=== PATIENT | male | born 1955 | race Caucasian/White ===

== ENCOUNTER 2023-12-17 14:18 | Emergency (ER) | payer OTHER ==
[~2023-12-17] VITALS: Ht 162.6 cm; Wt 72.0 kg
[~2023-12-17 14:18] MED LIST: ACETAMINOPHEN500 MG PO; ASPIRIN REGIMEN81 MG PO; FINASTERIDE5 MG PO; IMODIUM A-D2 M2 PO; LAMICTAL200 MG PO; LEVETIRACETAM750 MG PO; MACROBID 100 M100 MG PO; METOPROLOL SUCC25 MG PO; PHENYTEK300 MG PO; QUETIAPINE FUMA25 MG PO; TAMSULOSIN HCL0.4 MG PO; THIAMINE HCL100 MG PO; VITAMIN D250 MCG PO
[2023-12-17 15:50] VITALS: BP 151/93
== END 2023-12-17 15:58 | disposition home or self-care (01) ==
LOC: ED 14:18
DX: Z46.6 Encounter for fitting and adjustment of urinary device (principal); F03.90 Unspecified dementia, unspecified severity, without behavioral disturbance, psychotic disturbance, mood disturbance, and anxiety; N40.0 Benign prostatic hyperplasia without lower urinary tract symptoms; I10 Essential (primary) hypertension; Z79.82 Long term (current) use of aspirin; Z79.899 Other long term (current) drug therapy
CPT/HCPCS: 51702; 99283

== ENCOUNTER 2024-03-11 07:59 | Emergency (ER) | payer OTHER ==
[~2024-03-11] VITALS: Ht 162.6 cm; Wt 67.5 kg
[2024-03-11 09:38] VITALS: BP 138/86
== END 2024-03-11 09:38 | disposition home or self-care (01) ==
LOC: ED 07:59
DX: S09.90XA Unspecified injury of head, initial encounter (principal); W18.11XA Fall from or off toilet without subsequent striking against object, initial encounter; G40.909 Epilepsy, unspecified, not intractable, without status epilepticus; I10 Essential (primary) hypertension; Z79.899 Other long term (current) drug therapy; Z79.82 Long term (current) use of aspirin
CPT/HCPCS: 70450; 99284-25

== ENCOUNTER 2024-11-15 15:22 | Inpatient (IN) | payer MEDICARE, OTHER ==
[~2024-11-15] VITALS: Ht 162.6 cm; Wt 66.0 kg
[~2024-11-15 15:22] MED LIST changes: +ANTIFUNGAL113 GM TOP; +LOVENOX40 MG/0.4 SUB-Q; +NITROFURANTOIN100 MG PO; +TUMS ULTRA STR470 MG PO; +VITAMIN D350 MC3 PO
[2024-11-15 15:49] LABS: BASOPHILS 0.4 % (0-2); EOSINOPHILS 0.5 % (0-6); HEMATOCRIT 33.3 % (35.0-50.0); HEMOGLOBIN 11.4 g/dL (12.0-18.0); LYMPHOCYTES 7.6 % (24-44); MCH 29.6 (27-36); MCHC 34.1 g/dl (30-36); MCV 86.9 fl (81-99); MONOCYTES 9.2 % (0-12); NEUTROPHILS 82.3 % (39-80); PLATELET COUNT 185 K/uL (140-440); RBC 3.83 M/ul (4.3-5.7)
[2024-11-15 16:05] LABS: ALBUMIN 2.4 g/dL (3.4-5.0); ALBUMIN/GLOBULIN RATIO 0.77 (1.1-2.4); ANION GAP 10.4 (7-21); BILIRUBIN, TOTAL 0.3 mg/dL (0.2-1.0); BUN/CREATININE RATIO 14.56 (6.0-28.6); CALCIUM 7.9 mg/dL (8.5-10.1); CREATININE, SERUM 1.03 mg/dL (0.70-1.30); POTASSIUM 3.4 mmol/L (3.5-5.1); PROTEIN, TOTAL 5.5 g/dL (6.4-8.2)
[2024-11-15 16:09] LABS: LACTIC ACID, BLOOD 2.2 mmol/L (0.4-2.0)
[2024-11-15] MEDS ORDERED: CEFTRIAXONE SODIUM 2 GM in SODIUM CHLORIDE 0.9% 100 ML IV ONE (16:15)
[2024-11-15 16:30] LABS: BILIRUBIN, URINE NEGATIVE (negative); BLOOD/HGB, URINE TRACE-I (Negative); KETONE, URINE SMALL (Negative); LEUK ESTERASE, URINE NEGATIVE (negative); NITRITE, URINE NEGATIVE (negative)
[2024-11-15] MEDS ORDERED: SODIUM CHLORIDE 0.9% 500 ML IV PRN (16:30)
[2024-11-15 16:35] LABS: EPITHELIAL CELLS, URINE SQUAMOUS 1+ /lpf (0-1+)
[2024-11-15 16:36] LABS: BACTERIA, URINE 3+ /hpf (negative); CASTS, URINE GRANULAR 2+ \\lpf; COLLECTION TYPE, URINE CLEAN CATCH; CRYSTALS, URINE NONE SEEN (0-1+); REFLEX CULTURE, URINE Yes (No)
[2024-11-15] MEDS ORDERED: AZITHROMYCIN 500 MG in DEXTROSE 5% 250 ML IV ONE (18:00)
[2024-11-15] MEDS ORDERED: LACTATED RINGER'S 1,000 ML IV SCH (19:45)
[2024-11-15] MEDS ORDERED: PROCHLORPERAZINE EDISYLATE 10 MG/2 ML VIAL IV PRN (19:45)
[2024-11-15] MEDS ORDERED: ondansetron HCL 4 MG/2 ML VIAL IV PRN (19:45)
[2024-11-15] MEDS ORDERED: ACETAMINOPHEN 325 MG TAB PO PRN (19:45)
[2024-11-15] MEDS ORDERED: ENOXAPARIN SODIUM 40 MG/0.4 ML SYR SUB-Q SCH (20:00)
[2024-11-15] MEDS ORDERED: hydrOXYzine pamoate 25 MG CAP PO PRN (20:00)
[2024-11-15] MEDS ORDERED: PHENYTOIN SODIUM 100 MG CAP PO SCH (21:00)
[2024-11-15] MEDS ORDERED: levETIRAcetam 500 MG TAB PO SCH (21:00)
[2024-11-15] MEDS ORDERED: lamoTRIgine 150 MG TAB PO SCH (21:00)
[2024-11-15] MEDS ORDERED: MELATONIN 3 MG TAB PO PRN (21:00)
[2024-11-15 21:26] VITALS: BP 138/64
--- NOTE | 2024-11-15 21:50 | NUR ---
2109 - arrived from ed via stretcher. on 2LNC, not chronic. slight sob noted with exertion, cooperative with turning and repositioning. L side weakness from previous stroke as per pt. 2149- Zeizure pads placed in bed. L eye sclera red with yellow discharge, moderate amount. cleansed, cooperative. redness around nose nad mouth present, scaly dry skin with scattered redness irregular sizes all over the body from ears, neck to lower legs, specially around and back stomach, not open, bruised junior both hands present too, redness around chantal and buttocks area, attends changed, skin care and f/c care done, f/c from facility in place, leg ba in place, draining cloudy yellow urine. Leg bag changed to Large catherer bag. 2 SL RAC and L wrist patent. flushed easily. Not oriented to where he came from, date, time, month, town or specific situation. CLear speech. Oriented to room, used and return demonstration of call light done. asking for coffee, Pt on regular diet.
[2024-11-15 23:29] VITALS: BP 138/64
--- NOTE | 2024-11-15 23:30 | NUR ---
PT AWAKE, WATCHING TC, NO C/O PAIN AT THIS TIME. O2 2LNC ON AT THIS TIME. IVF INFUSING W/O PEOBLEMS, F/C PATENT. REPOSITIONED SELF TO LEFT SIDE, LEFT SIDED GROSS MOVEMENT ARM AND STIFFNESS LEG, NO C/O PAIN. FORGETFUL, REDIRECTABLE, SEIZURE PADS ON RAILS, BED ALRM ON FOR SAFETY
[2024-11-16] VITALS (8 sets, daily range): BP systolic 112–134; BP diastolic 59–74
[2024-11-16] MEDS ORDERED: ALBUTEROL/IPRATROPIUM 3 ML NEB INH PRN (00:45)
--- NOTE | 2024-11-16 01:17 | NUR ---
resting, hob elevated, repositioned in bed. On 2LNC in place,IVF infusing w/o problems, f/c patent, Bed alarm in place
--- NOTE | 2024-11-16 02:11 | NUR ---
awakens easily, denies sob with exertion. O2 titrated from 1.5L NC to 1LNC, sats WNL. lungs dim at bases faint crackles. Repositioned and turned in bed. IVF infusing w/o problems. f/c patent. moves legs in bed. Seizure pads in place. HOB elevated, took sips of water. Went back to sleep
--- NOTE | 2024-11-16 03:25 | NUR ---
RESTING, EYES CLOSED, TURNED SELF. ON 1LNC, F/C PATENT. LEGS ELEVATED,IVF INFUSING W/O PROBLEMS.
[2024-11-16 05:09] LABS: BASOPHILS 0.5 % (0-2); EOSINOPHILS 1.6 % (0-6); HEMATOCRIT 34.1 % (35.0-50.0); HEMOGLOBIN 11.5 g/dL (12.0-18.0); MCH 29.2 (27-36); MCHC 33.7 g/dl (30-36); MCV 86.6 fl (81-99); MONOCYTES 10.8 % (0-12); NEUTROPHILS 75.1 % (39-80); PLATELET COUNT 193 K/uL (140-440); RBC 3.93 M/ul (4.3-5.7); RDW 14.1 (10.5-15.0)
[2024-11-16 05:24] LABS: ALBUMIN 2.5 g/dL (3.4-5.0); ALBUMIN/GLOBULIN RATIO 0.83 (1.1-2.4); ANION GAP 8.4 (7-21); BILIRUBIN, TOTAL 0.4 mg/dL (0.2-1.0); BUN/CREATININE RATIO 13.55 (6.0-28.6); CALCIUM 7.9 mg/dL (8.5-10.1); CREATININE, SERUM 0.59 mg/dL (0.70-1.30); MAGNESIUM 1.7 mg/dL (1.8-2.4); POTASSIUM 3.4 mmol/L (3.5-5.1); PROTEIN, TOTAL 5.5 g/dL (6.4-8.2)
--- NOTE | 2024-11-16 06:07 | NUR ---
NASAL COVIS TEST DONE AND SAMPLE SENT TO LAB, COOPERATIVE WITH SECOND ASSESSMENT AND VITALS, ALL CARES EXPLAINED. F/C PATENT. REPOSITIONED IN BED, EDEMA TO LE NO CHANGES, LE ELEVATED
[2024-11-16 06:42] LABS: INFLUENZA B NAA NEGATIVE (NEGATIVE); RESPIRATORY SYNCYTIAL VIR NAA NEGATIVE (NEGATIVE)
[2024-11-16] MEDS ORDERED: LIDOCAINE 2% VISCOUS 6 ML SYR TOP ONE (06:45)
--- NOTE | 2024-11-16 06:52 | NUR ---
DR DALAL NOTIFIED OF PTS HAVING A F/C WHICH WAS PLACED AT [facility] UNKNOWN DATE AND PT HAS A 3+ BACTERIA PER UA COLLECTED IN ER. NOTIFIED OF PTS LEFT EYE WITH INCREAED RED CONJUCTIVE AND MODERATE AMOUNT OF YELLOW DISCHARGE FROM EYE. NEW ORDERS FOR OK TO CHANGE F/C AND ERYTHROMYCIN MOINTMENT 4X'S A DAY .
--- NOTE | 2024-11-16 07:07 | NUR ---
PATIENTS GARDNER CHANGED PER ORDER. PATIENT TOLERATED ACTIVITY WELL. PATIENT REPOSITIONED IN BED. PATIENT DENIES ANY FURTHER NEEDS. CALL LIGHT IN REACH. BED ALARM ON FOR PATIENT SAFETY.
--- NOTE | 2024-11-16 07:29 | NUR ---
REPORT FROM MARLENA MCMAHAN.
--- NOTE | 2024-11-16 07:55 | NUR ---
MORNING ASSESSMENT IS COMPLETE. PATIENT IS ON 2L OF O2 FOR 94% SATS. RT IN TO DO NEB TX. PATIENT IS RESTING COMFORTABLEY, REPORTS PAIN WITH COUGH OF 7/10 THEN PROMPTLY FORGETS. ABX OINTMENT TO BOTH EYES. NO OTHER NEEDS AT THIS TIME.
[2024-11-16] MEDS ORDERED: ALBUTEROL/IPRATROPIUM 3 ML NEB INH SCH (08:00)
[2024-11-16] MEDS ORDERED: THIAMINE HCL 100 MG TAB PO SCH (08:00)
[2024-11-16] MEDS ORDERED: MAGNESIUM OXIDE 400 MG TABLET PO ONE (08:00)
[2024-11-16] MEDS ORDERED: ERYTHROMYCIN 3.5 GM TUBE OS SCH (08:00)
[2024-11-16] MEDS ORDERED: POTASSIUM BICARBONATE/CIT AC 20 MEQ TABEF PO ONE (08:00)
--- NOTE | 2024-11-16 08:37 | NUR ---
MORNING MEDICATIONS GIVEN. PATIENT ATE 100% OF BREAKFAST.
--- NOTE | 2024-11-16 08:50 | NUR ---
PATIENT IN BED AT THIS TIME. SECONDARY CONNECTOR ARMATURE CHARTED HOURLY ROUNDS. CALL LIGHT WITHIN REACH, NO FURTHER NEEDS AT THIS TIME.
[2024-11-16] MEDS ORDERED: FINASTERIDE 5 MG TAB PO SCH (09:00)
[2024-11-16] MEDS ORDERED: AZITHROMYCIN 250 MG TAB PO SCH (09:00)
[2024-11-16] MEDS ORDERED: METOPROLOL SUCCINATE 25 MG TABCR PO SCH (09:00)
[2024-11-16] MEDS ORDERED: predniSONE 20 MG TAB PO SCH (09:00)
[2024-11-16] MEDS ORDERED: metroNIDAZOLE 250 MG TAB PO SCH (09:00)
[2024-11-16] MEDS ORDERED: LOSARTAN POTASSIUM 25 MG TAB PO SCH (09:00)
--- NOTE | 2024-11-16 09:38 | NUR ---
PATIENT IN MRI VIA BED.
--- NOTE | 2024-11-16 10:29 | NUR ---
PATIENT IN BED AT THIS TIME. INTERNET DEVELOPER CHARTED VITALS AND I&O'S. INTERNET DEVELOPER ALSO PROVIDED PATIENT WITH CATHETER CARE. CALL LIGHT WITHIN REACH, NO FURTHER NEEDS AT THIS TIME.
--- NOTE | 2024-11-16 10:45 | NUR ---
Attempted to speak with Godwin. He is unable to answer most questions. He believes he [place] in [place]. Caleb from [facility] called and states pt may return. Pt uses a cane, he did have HH for PT, but they felt it made his confusion worse as he cont. to attempt to walk and then fall. Pt has a TBI, dementia, and seizures. Per Caleb, pt was having seizures and 02 was low. They deny any needs and pt may return when medically cleared.
--- NOTE | 2024-11-16 10:48 | NUR ---
PATIENT IS AMBULATING IN HALLWAY WITH PHYSICAL THERAPY.
--- NOTE | 2024-11-16 10:57 | NUR ---
PATIENT IS RESTING IN BED, IVF RESUMED. NO OTHER NEEDS.
--- NOTE | 2024-11-16 11:08 | NUR ---
UR CLINICAL REVIEW: 2 MN FOR VERSALUS-PER SOIL BIOLOGY TEACHER MEETS INPT FOR AHRF/PNA WITH NEW NEED FOR OXYGEN MEDICARE INPT 11/15/24 @ 1953 ORDER MATCHES REG NO AUTH REQUIRED PER MEDICARE GUIDELINES DISCHARGE TO HOME IN 2-3 DAYS
[2024-11-16] MEDS ORDERED: PHARMACY RENAL DOSE ADJUSTMENT 1 DOSE MISC PO SCH (12:00)
[2024-11-16] MEDS ORDERED: GUAIFENESIN/DEXTROMETHORPHAN 5 ML SYRUP PO PRN (12:30)
--- NOTE | 2024-11-16 13:12 | NUR ---
PATIENT HOYERED TO COMMODE FROM CHAIR, PATIENT DID NOT HAVE A BM. AFTERNOON MEDICATION GIVEN. PATIENT ASKING FOR WHISKEY AND PERCODAN. PATIENT REORIENTED, MOMENTARILY, AND GIVEN ROBITUSSIN, LAMICTAL AND ABX OINTMENT. NO OTHER NEEDS AT THIS TIME.
--- NOTE | 2024-11-16 14:44 | NUR ---
PATIENT GIVEN PO DILANTIN.
--- NOTE | 2024-11-16 15:24 | NUR ---
PATIENT IN BED AT THIS TIME. TRANSMISSION BUILDER CHARTED HOURLY ROUNDS, THIS TRANSMISSION BUILDER AND TRANSMISSION BUILDERTae MORSE PLACED PATIENT ON BED SPRAGUE. PATIENT STATED HE WAS DONE AND BOTH CNAS REMOVED BED SPRAGUE. CALL LIGHT WITHIN REACH, NO FURTHER NEEDS.
--- NOTE | 2024-11-16 15:58 | NUR ---
IV ROCEPHIN INFUSING FOR 30 MINUTES. PO LAMICTAL GIVEN.
[2024-11-16] MEDS ORDERED: CEFTRIAXONE SODIUM 2 GM in SODIUM CHLORIDE 0.9% 100 ML IV SCH (16:00)
[2024-11-16] MEDS ORDERED: FINASTERIDE5 MG PO (16:11)
[2024-11-16] MEDS ORDERED: HYDROXYZINE HCL25 MG PO (16:11)
[2024-11-16] MEDS ORDERED: LAMOTRIGINE25 MG PO (16:16)
[2024-11-16] MEDS ORDERED: LAMOTRIGINE150 MG PO (16:16)
[2024-11-16] MEDS ORDERED: IBUPROFEN600 MG PO (16:17)
[2024-11-16] MEDS ORDERED: LOSARTAN POTASS25 MG PO (16:18)
[2024-11-16] MEDS ORDERED: LEVETIRACETAM500 MG PO (16:19)
[2024-11-16] MEDS ORDERED: PHENYTOIN SODI100 MG PO (16:19)
[2024-11-16] MEDS ORDERED: QUETIAPINE FUMA50 MG PO (16:20)
[2024-11-16] MEDS ORDERED: OXYBUTYNIN CHLOR5 MG PO (16:21)
[2024-11-16] MEDS ORDERED: AMITRIPTYLINE H50 MG PO (16:23)
--- NOTE | 2024-11-16 17:08 | NUR ---
PATIENT'S SISTER NAJMA CALLED FOR UPDATES AND WILL CALL TOMORROW TO TALK TO PATIENT.
--- NOTE | 2024-11-16 17:58 | EKG ---
[facility] [address] [place], [place] [address] Signed Normal sinus rhythm Normal ECG No previous ECGs available Confirmed by Lisandro Dalal DO ([id number]) on 11/16/2024 5:58:32 PM Electronically Signed By: LISANDRO DALAL DO 11/16/24 1758 PATIENT NAME: ALPHONSE TOWNSEND Electrocardiogram DATE OF : 59 PHYSICIAN: LISANDRO DALAL DO REPORT #: [id number] REPORT IS CONFIDENTIAL AND NOT TO BE RELEASED WITHOUT AUTHORIZATION
--- NOTE | 2024-11-16 18:34 | NUR ---
PATIENT IS SITTING UP IN BED TO EAT DINNER, SEIZURE PAD ON LEFT SIDE OF BED ONLY AT THIS TIME. NO OTHER NEEDS.
--- NOTE | 2024-11-16 18:54 | NUR ---
PATIENT IN BED AT THIS TIME. BROOM MACHINE OPERATOR CHARTED VITALS AND I&O'S. CALL LIGHT WITHIN REACH, NO FURTHER NEEDS.
--- NOTE | 2024-11-16 19:10 | NUR ---
REPORT RECEIVED FROM MARTIR GONZALEZ. PATIENT RESTING IN BED. SEIZURE PADS IN PLACE. CALL LIGHT AND PERSONAL BELONGINGS ARE WITHIN REACH.
--- NOTE | 2024-11-16 20:00 | NUR ---
THIS RN IN ROOM FOR MEDICATION ADMINISTRATION. PATIENT SITTING UP IN BED. PATIENT SWALLOWED MEDICATIONS WITHOUT DIFFICULTY. SEIZURE PRECAUTIONS IN PLACE. CALL LIGHT AND PERSONAL BELONGINGS ARE WITHIN REACH.
--- NOTE | 2024-11-16 21:18 | NUR ---
PATIENT HAD BM. PATIENTS ATTEND CHANGED AND ANNETTE CARE COMPLETED. PATIENT REPOSITIONED IN BED. PATIENTS VITALS TAKEN AND RECORDED. GARDNER EMPTIED AND GARDNER CARE COMPLETED BY SUPERVISOR ELECTRONICS TESTING. INTAKE AND OUTPUT RECORDED. PATIENT DENIES ANY PAIN OR SOB. PATIENT PROVIDED SIPS OF WATER. PATIENT PROVIDED WARM BLANKET. IV INFUSING PER ORDER. EYE OINTMENT APPLIED PER ORDER. PATIENT DENIES ANY FURTHER NEEDS. CALL LIGHT IN REACH. SEIZURE PRECAUTIONS IN PLACE. PATIENTS BED [facility] ON FOR SAFETY.
--- NOTE | 2024-11-16 22:33 | NUR ---
PATIENT RESTING IN BED WATCHING TV. SEIZURE PRECAUTIONS ARE IN PLACE. CALL LIGHT AND PERSONAL BELONGINGS ARE WITHIN REACH.
--- NOTE | 2024-11-16 23:45 | NUR ---
PATIENT RESTING IN BED WATCHING TV. SEIZURE PADS IN PLACE. CALL LIGHT AND PERSONAL BELONGINGS ARE WITHIN REACH.
--- NOTE | 2024-11-17 00:31 | NUR ---
PATIENT SITTING UP IN BED WATCHING TV. SEIZURE PADS IN PLACE. CALL LIGHT AND PERSONAL BELONGINGS ARE WITHIN REACH.
--- NOTE | 2024-11-17 01:05 | NUR ---
PATIENT ATTEMPTING TO CLIMB OUT OF BED, THIS RN IN ROOM AND NOTED PATIENT HAD RIPPED HIS IV HALF WAYS OUT. MICAH ANDREW IN ROOM TO ASSIST THIS RN WITH REPOSITIONING PATIENT AND CHANGING LINEN DUE TO THEM BEING SOILED WITH BLOOD. IV PULLED ALL THE WAY OUT BY THIS RN. IV CATHETER TIP IS INTACT. PRESSURE DRESSING OF GAUZE AND COBAN APPLIED TO OLD IV SITE TO LEFT WRIST. IV IN RIGHT FOREARM FLUSHED WITH 10ML OF NS AND IS PATENT, DRESSING INTACT. NEW BAG OF LR WITH NEW TUBING INFUSING INTO RIGHT FOREARM IV. RIGHT FOREARM IV AND IV TUBING LOOSLY WRAPPED WITH COBAN TO KEEP OUT OF SITE FROM PATIENT TO HELP PREVENT HIM FROM PULLING AT IV. PATIENT MEDICATED WITH MELATONIN AND TYLENOL PER PATIENT REQUEST. PATIENT WITHOUT FURTHER NEEDS AT THIS TIME. CALL LIGHT AND PERSONAL BELONGINGS ARE WITHIN REACH. BED ALARM ACTIVATED, SEIZURE PADS IN PLACE.
--- NOTE | 2024-11-17 02:28 | NUR ---
PATIENT RESTING IN BED WATCHING TV. SEIZURE PADS IN PLACE. CALL LIGHT AND PERSONAL BELONGINGS ARE WITHIN REACH. BED ALARM ACTIVATED.
--- NOTE | 2024-11-17 03:02 | NUR ---
IV ALARMING. THIS RN IN ROOM. IV SITE ASSESSED AND IS WNL. IV FLUIDS RESTARTED. PATIENT WITHOUT FURHTER NEEDS AT THIS TIME. CALL LIGHT AND PERSONAL BELONGINGS ARE WITHIN REACH.
[2024-11-17 03:14] LABS: KEPPRA (LEVETIRACETAM) 44 ug/mL (10-40)
--- NOTE | 2024-11-17 04:17 | NUR ---
PATIENT RESTING IN BED WATCHING TV. SEIZURE PRECAUTIONS IN PLACE. CALL LIGHT AND PERSONAL BELONGINGS ARE WITHIN REACH. BED ALARM ACTIVATED.
--- NOTE | 2024-11-17 05:30 | NUR ---
THIS RN IN ROOM TO CHECK ON PATIENT. PATIENT RESTING IN BED WATCHING TV. PATIENT WAS WARM TO TOUCH, TEMPERATURE TAKEN AND WAS 99.7. THIS RN REMOVED PATIENT'S HEAVY BLANKETS AND WILL CONTINUE TO MONITOR. TOO EARLY FOR PRN TYLENOL AT THIS TIME. PATIENT DENIES ANY PAIN AT THIS TIME. PATIENT WITHOUT FURTHER NEEDS. CALL LIGHT AND PERSONAL BELONGINGS ARE WITHIN REACH.
[2024-11-17 05:48] VITALS: BP 139/78
[2024-11-17 05:49] LABS: BASOPHILS 0.4 % (0-2); EOSINOPHILS 0.9 % (0-6); HEMATOCRIT 32.2 % (35.0-50.0); LYMPHOCYTES 8.9 % (24-44); MCH 29.6 (27-36); MCHC 34.2 g/dl (30-36); MCV 86.5 fl (81-99); MONOCYTES 8.5 % (0-12); NEUTROPHILS 81.3 % (39-80); PLATELET COUNT 223 K/uL (140-440); RBC 3.72 M/ul (4.3-5.7)
[2024-11-17 06:03] LABS: ANION GAP 9.4 (7-21); BUN/CREATININE RATIO 14.51 (6.0-28.6); CALCIUM 7.8 mg/dL (8.5-10.1); CREATININE, SERUM 0.62 mg/dL (0.70-1.30); POTASSIUM 3.4 mmol/L (3.5-5.1)
[2024-11-17 06:36] VITALS: BP 139/78
--- NOTE | 2024-11-17 07:50 | NUR ---
HOURLY ROUNDING. PATIENT APPEARS TO BE IN AND OUT OF SLEEP, PATIENT MENTIONED HAVING BACK PAIN. BACK PAIN IS CHRONIC PER CHARGE NURSE. BOARD HAS BEEN UPDATED AND CALL LIGHT HAS BEEN PLACED WITHIN REACH
[2024-11-17] MEDS ORDERED: POTASSIUM CHLORIDE 10 MEQ TABCR PO ONE (08:15)
[2024-11-17 09:54] VITALS: BP 117/69
--- NOTE | 2024-11-17 10:00 | NUR ---
Called and left a message for Caleb. Updated, pt will be discharged today. I have faxed the orders and dc summary. I just want to confirm a time for transport. I spoke with PT and pts RN, both feel pt might not tolerate a wc ride as he slumps forward.
[2024-11-17] MEDS ORDERED: METRONIDAZOLE250 MG PO (10:05)
[2024-11-17] MEDS ORDERED: VITAMIN B-1100 MG PO (10:06)
[2024-11-17] MEDS ORDERED: CEFDINIR300 MG PO (10:08)
[2024-11-17] MEDS ORDERED: PREDNISONE20 MG PO (10:09)
--- NOTE | 2024-11-17 11:02 | NUR ---
HOURLY ROUNDING. PATIENT IS CURRENTLY SLEEPING. GATHERED HIS THINGS FOR DISCHARGE.
--- NOTE | 2024-11-17 11:15 | NUR ---
Called Caleb, updated pt has dc orders. She received the orders I faxed. They would prefer pt arrive after 1 pm. I will let staff know and call EMS for transport.
--- NOTE | 2024-11-17 12:27 | NUR ---
PT NOT AVAILABLE FOR VISIT. PROVIDED PRAYER.
--- NOTE | 2024-11-17 12:40 | NUR ---
Called and scheduled transport by EMS to [facility]. They will arrive between 1 and 1:30. Orders placed in and envelope and charge nurse notified, of time for transport.
[2024-11-17 13:00] VITALS: BP 115/79
[2024-11-17] MEDS ORDERED: ALBUTEROL/IPRATROPIUM 3 ML NEB INH SCH (14:00)
--- NOTE | 2024-11-17 17:50 | NUR ---
H&P, DC summary, F2F faxed to [facility] for catheter changes. Rx received from Dr. Nunez and faxed to Claudia Singleton, at [facility] to [facility] for pts pink eye.
== END 2024-11-17 13:15 | disposition home or self-care (01) | DRG 177 ==
LOC: ED 15:22 → MS 19:54
PROVIDERS: Emergency Medicine; ADMIT Student in an Organized Health Care Education/Training Program; ATTEND Student in an Organized Health Care Education/Training Program
DX: J69.0 Pneumonitis due to inhalation of food and vomit (principal); J96.01 Acute respiratory failure with hypoxia; F02.83 Dementia in other diseases classified elsewhere, unspecified severity, with mood disturbance; J18.9 Pneumonia, unspecified organism; G30.9 Alzheimer's disease, unspecified; N40.0 Benign prostatic hyperplasia without lower urinary tract symptoms; G40.909 Epilepsy, unspecified, not intractable, without status epilepticus; F10.20 Alcohol dependence, uncomplicated; G89.29 Other chronic pain; D72.829 Elevated white blood cell count, unspecified; F12.10 Cannabis abuse, uncomplicated; I10 Essential (primary) hypertension; Z79.899 Other long term (current) drug therapy; Z79.82 Long term (current) use of aspirin; Z87.820 Personal history of traumatic brain injury
CPT/HCPCS: 36415; 51702; 70553; 71045; 71260; 74176; 80048; 80053; 80177; 80185; 81001; 82140; 83605; 83735; 84439; 84443; 85025; 87088; 87502; 93005; 93010; 94640; 94667; 94668; 97162; 97166; 99285-25; A9270; A9579; J0456; J0696; J1650; J7040; J7060; J7121; J7512; Q9967; U0002

== ENCOUNTER 2025-01-15 13:48 | Emergency (ER) | payer MEDICARE, OTHER ==
[~2025-01-15] VITALS: Ht 162.6 cm; Wt 66.0 kg
[~2025-01-15 13:48] MED LIST changes: +AMITRIPTYLINE H50 MG PO; +CEFDINIR300 MG PO; +HYDROXYZINE HCL25 MG PO; +IBUPROFEN600 MG PO; +LAMOTRIGINE150 MG PO; +LAMOTRIGINE25 MG PO; +LEVETIRACETAM500 MG PO; +LOSARTAN POTASS25 MG PO; +METRONIDAZOLE250 MG PO; +OXYBUTYNIN CHLOR5 MG PO; +PHENYTOIN SODI100 MG PO; +PREDNISONE20 MG PO; +QUETIAPINE FUMA50 MG PO; +VITAMIN B-1100 MG PO
[2025-01-15 15:48] VITALS: BP 145/75
== END 2025-01-15 15:48 | disposition home or self-care (01) ==
LOC: ED 13:48
DX: S42.032A Displaced fracture of lateral end of left clavicle, initial encounter for closed fracture (principal); I10 Essential (primary) hypertension; Z79.2 Long term (current) use of antibiotics; Z79.899 Other long term (current) drug therapy; W19.XXXA Unspecified fall, initial encounter
CPT/HCPCS: 71045; 73000; 73030; 99283-25

== ENCOUNTER 2025-06-17 17:08 | Inpatient (IN) | payer MEDICARE, OTHER ==
--- NOTE | 2025-06-16 22:00 | NUR ---
PATIENT ARRIVED FROM THE ED. PATIENT MOVED VIA SLIDER SHEET TO BED. PATIENT IS ABLE TO MOVE HIS RIGHT ARM AND ASSIST IN ROLLING BUT REQUIRED 2 PERSON ASSIST TO ROLL. SKIN IS GROSSLY INTACT; AREAS OF REDNESS AND DRY SKIN NOTED. ATTEND IN PLACE; CLEAN AND DRY. GARDNER IN PLACE WITH LEG BAG. URINE IS CLOWDY. PATIENT IS ALERT AND TALKATIVE; DIFFICULT TO UNDERSTAND AT TIMES AND ORIENTED MOSTLY TO SELF ONLY. APPEARS TO BE A POOR HISTORIAN AND UNSURE OF MANY THINGS REGAURDING HIS BASLINE AND HISTORY. PATIENT VS STABLE. TOLERATING ROOM AIR. DENIED PAIN OR GI UPSET. IV SITES WNL X2. PATIENT IS COOL TO TOUCH; WARM BLANKETS PROVIDED. EDEMA NOTED IN MAREK LOWER EXTREMITITES; WORSE ON THE LEFT. PATIENT REPORTS HIS LEFT SIDE IS PARALYZED. LEFT ARM IS CONTRACTED; LEFT LEG HAS GROSS MOVEMENT.
[~2025-06-17] VITALS: Ht 162.6 cm; Wt 61.9 kg
[~2025-06-17 17:08] MED LIST changes: -AMITRIPTYLINE H50 MG PO; +AMITRIPTYLINE100 MG PO; +COZAAR50 MG PO; -LOSARTAN POTASS25 MG PO
[2025-06-17] MEDS ORDERED: GENTLE LAXATIVE5 M1 PO (17:39)
[2025-06-17] MEDS ORDERED: JARDIANCE25 MG PO (17:40)
[2025-06-17] MEDS ORDERED: MILK OF MA400 MG/5 M PO (17:43)
[2025-06-17] MEDS ORDERED: SODIUM CHLORIDE 0.9% 1,000 ML IV PRN ×2 (18:15)
[2025-06-17] MEDS ORDERED: SODIUM CHLORIDE 0.9% 500 ML IV PRN (18:15)
[2025-06-17 18:32] LABS: BASOPHILS 0.3 % (0.2-1.2); EOSINOPHILS 0.7 % (0.8-7.0); LYMPHOCYTES 5.3 % (21.8-53.1); MCH 28.9 PG (25.7-32.2); MCHC 31.8 g/dL (32.3-36.5); MCV 90.9 fL (79.0-92.2); MONOCYTES 12.7 % (5.3-12.2); NEUTROPHILS 79.5 % (34.0-67.9); RBC 3.84 M/uL (4.63-6.08)
[2025-06-17 18:50] LABS: ALT (SGPT) 56.0 U/L (14-59); AST (SGOT) 114.0 U/L (15-37); GLOMERULAR FILTRATION RATE,EST 24.0 mL/min (>60); PROTEIN, TOTAL 6.6 g/dL (6.4-8.2); UREA NITROGEN 44.0 mg/dL (7-18)
[2025-06-17 18:53] LABS: LACTIC ACID, BLOOD 1.4 mmol/L (0.4-2.0)
[2025-06-17 20:35] LABS: BLOOD/HGB, URINE MODERATE (Negative); KETONE, URINE NEGATIVE (Negative); LEUK ESTERASE, URINE MODERATE (negative); NITRITE, URINE NEGATIVE (negative)
[2025-06-17 20:40] LABS: EPITHELIAL CELLS, URINE SQUAMOUS 1+ /lpf (0-1+)
[2025-06-17 20:41] LABS: BACTERIA, URINE 2+ /hpf (negative); CASTS, URINE NONE SEEN \\lpf; CRYSTALS, URINE NONE SEEN (0-1+)
[2025-06-17 20:42] LABS: REFLEX CULTURE, URINE Yes (No)
[2025-06-17] MEDS ORDERED: FLUCONAZOLE 150 MG TAB PO ONE (21:00)
[2025-06-17] MEDS ORDERED: levETIRAcetam 500 MG TAB PO SCH (21:21)
[2025-06-17] MEDS ORDERED: lamoTRIgine 25 MG TAB PO SCH (21:30)
[2025-06-17] MEDS ORDERED: ACETAMINOPHEN 325 MG TAB PO PRN (21:30)
[2025-06-17] MEDS ORDERED: QUETIAPINE FUMARATE 25 MG TAB PO SCH (21:30)
[2025-06-17] MEDS ORDERED: Insulin Regular, Human 100 UNIT/ML ML SUB-Q SCH (21:30)
[2025-06-17] MEDS ORDERED: SODIUM CHLORIDE 0.9% 1,000 ML IV SCH (21:30)
[2025-06-17] MEDS ORDERED: HYDROmorphone HCL 1 MG/ML SYR IV PRN (21:30)
[2025-06-17] MEDS ORDERED: lamoTRIgine 100 MG TAB PO SCH (21:30)
[2025-06-17] MEDS ORDERED: PHENYTOIN SODIUM 100 MG CAP PO SCH (21:30)
[2025-06-17 22:00] VITALS: BP 107/77
--- NOTE | 2025-06-17 22:30 | NUR ---
PATIENT PROVIDED SCHEDULED MEDS. VERIFIED HOME MED REC FROM PAPERWORK SENT BY FACILITY. PATIENT TAKES PO MEDS WITHOUT CONCERN. IV FLUIDS INFUSING PER ORDER; SITE WNL. PATIENT DENIED OTHER NEEDS. CALL LIGHT IN PATIENT HAND.
[2025-06-17 23:00] VITALS: BP 100/71
[2025-06-18] VITALS (22 sets, daily range): BP systolic 89–136; BP diastolic 52–80
--- NOTE | 2025-06-18 | NUR ---
PATIENT APPEARS RESTFYL; EYES CLOSED. VS STABLE.
--- NOTE | 2025-06-18 01:10 | NUR ---
pt srivastava leg bag changed to a regualt srivastava bag. srivastava draining and pt tolerated well. call light in reach.
--- NOTE | 2025-06-18 02:00 | NUR ---
PATIENT RESTING IN BED, EYES CLOSED. VS STABLE. PATIENT WAKES EASILY TO VOICE. DENIED ANY CONCERNS. CALL LIGHT IN REACH.
--- NOTE | 2025-06-18 05:15 | NUR ---
PATIENT PROVIDED PRN TYELNOL FOR GENERALIZED PAIN. PATIENT IS ORIENTED TO SELF AND HOLDS CONVERSATION WELL, BUT IS UNSURE OF DATE AND SITUATION. VS STABLE. IV FLUIDS PER ORDER. SITE WNL. URINE OUTPUT QS. URINE IS MORE CLEAR THAN PREVIOUSLY NOTED. PATIENT INCONTINENT OF STOOL. ATTENDS CHANGED. ALYVEN PLACED ON COCCYX. BARRIER CREAM APPLIED. PATIENT REPOSITIONED IN BED. HOB ELEVATED. HEALS FLOATED. CALL LIGHT IN REACH.
[2025-06-18 05:43] LABS: BASOPHILS 0.3 % (0.2-1.2); EOSINOPHILS 1.0 % (0.8-7.0); LYMPHOCYTES 4.4 % (21.8-53.1); MCH 29.3 PG (25.7-32.2); MCHC 32.8 g/dL (32.3-36.5); MCV 89.3 fL (79.0-92.2); MONOCYTES 9.8 % (5.3-12.2); NEUTROPHILS 83.7 % (34.0-67.9); RBC 3.38 M/uL (4.63-6.08)
[2025-06-18 06:01] LABS: ALT (SGPT) 40.0 U/L (14-59); AST (SGOT) 61.0 U/L (15-37); GLOMERULAR FILTRATION RATE,EST 29.0 mL/min (>60); PROTEIN, TOTAL 5.3 g/dL (6.4-8.2); UREA NITROGEN 42.0 mg/dL (7-18)
--- NOTE | 2025-06-18 06:37 | NUR ---
CALLED FACILITY TO REQUEST POLST FORM FAXED TO [facility] FOR RECORDS. STAFF AT FACILITY ADVISED THAT THE PATIENT DOES NOT WEAR DENTURES AND IS CHRONICALLY WC BOUND REQUIRING MAX 2 PERSON ASSIST.
[2025-06-18] MEDS ORDERED: POTASSIUM CHLORIDE 40 MEQ,LIDOCAINE HCL 1% 40 MG in DEXTROSE 5% 250 ML IV ONE (07:00)
[2025-06-18] MEDS ORDERED: ACETAMINOPHEN 325 MG TAB PO PRN (07:15)
--- NOTE | 2025-06-18 08:00 | NUR ---
PTS SISTER UPDATED VIA TELEPHONE ON PT STATUS AND PLAN OF CARE. ALL QUESTIONS ANSWERED.
--- NOTE | 2025-06-18 08:18 | NUR ---
UR CLINICAL REVIEW: 2MN VERSALUS, MEETS INPT FOR PYELONEPHRITIS, ACUTE RENAL FAILURE HYPOTENSIVE (89/64), CT SHOWS POSSIBLE PYELONEPHRITIS BILAT, CREATININE 2.76 WITH BASELINE 0.83, GFR 24, IV ANTIBIOTICS, IV FLUIDS, TREND LABS MEDICARE INPT 06/18/2025 @ 0707 ORDER MATCHES REG NO AUTH REQUIRED PER MEDICARE RULES DC TO ASSISTED LIVING WHEN MEDICALLY READY.
[2025-06-18] MEDS ORDERED: FLUCONAZOLE 150 MG TAB PO ONE (09:00)
[2025-06-18] MEDS ORDERED: EMPAGLIFLOZIN 25 MG TAB PO SCH (09:00)
--- NOTE | 2025-06-18 09:30 | NUR ---
PT WAKES EASILY UPON ENTERING ROOM. PT ORIENTED TO SELF ONLY, PLESANT IN CONVERSATION BUT DISORIENTED TO TIME AND PLACE. 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 LEFT ARM AND LEG MINIMAL MOVEMENT ON COMMAND, BASELINE. 2+ EDEMA IN LEFT UPPER AND LOWER EXTREMITY, ARM ELEVATED ON PILLOW, HEELS ELEVATED ON PILLOW. GARDNER DRAINING YELLOW URINE WITH CLOUDY SEDIMENT IN TUBE. URINE OUTPUT ADEQUATE. BP MARGINAL, MAP >65, MONITORING CLOSELY. PT ABLE TO FEED SELF MINIMALLY, ASSISTED. POOR APPETITE, DRINKING LOTS OF WATER. PT RATES PAIN 0/10. IV SITES WNL.
--- NOTE | 2025-06-18 11:15 | NUR ---
INTO SEE PATIENT. PATIENT LIVES AT [facility]. PATIENT USES WHEELCHAIR AT BASELINE. NO OXYGEN OR CPAP. PATIENT POLST FROM ACCOUNT PRINTED. PLACED ON CHART.
[2025-06-18] MEDS ORDERED: PHARMACY RENAL DOSE ADJUSTMENT 1 DOSE MISC PO SCH (12:00)
[2025-06-18] MEDS ORDERED: FLUCONAZOLE 200 MG TAB ONE (12:24)
[2025-06-18] MEDS ORDERED: HEParin SOD (PORCINE) 5,000 UNIT/ML SDV SUB-Q SCH (12:41)
[2025-06-18] MEDS ORDERED: LACTATED RINGER'S 1,000 ML IV SCH (12:45)
--- NOTE | 2025-06-18 13:30 | NUR ---
PT MICHAEL UP TO CHAIR AFTER FULL BED BATH. NO AREAS OF SKIN BREAKDOWN NOTED ON FULL BED BATH. ALLYVN ON COCCYX FOR PREVENTION. PT REMAINS ONLY ORIENTED TO SELF, PLEASANT. DENIES WANTING LUNCH, CHOCOLATE ENSURE PROVIDED, PT EAGER TO DRINK RATHER THAN EAT. VS STABLE. AFEBRILE.
--- NOTE | 2025-06-18 14:33 | NUR ---
NURSE AND I MICHAEL PATIENT TO HIS CHAIR. BED BATH COMPLETE NEW GOWN. BED LINENS CHANGED WAFFLE MATTRESS ON BED.
[2025-06-18] MEDS ORDERED: QUETIAPINE FUMARATE 25 MG TAB PO SCH (15:00)
[2025-06-18] MEDS ORDERED: DEXTROSE 5% 1,000 ML IV PRN (15:15)
[2025-06-18] MEDS ORDERED: DEXTROSE 50% 50 ML SYR IV PRN ×2 (15:15)
[2025-06-18] MEDS ORDERED: GLUCAGON,HUMAN RECOMBINANT 1 MG/ML VIAL SUB-Q PRN (15:15)
[2025-06-18] MEDS ORDERED: IBLOOD GLUCOSE TEST STRIP 1 EA TEST XX PRN (15:15)
--- NOTE | 2025-06-18 15:30 | NUR ---
PT BACK TO BED USING MICHAEL. PT INC OF VERY LARGE LIQUID BM. NEW COCCYX ALLEYVN PLACED. GARDNER CARE COMPLETE. PT POSITIONED TO LEFT SIDE USING PILLOWS. CALL LIGHT BUTTON IN HAND.
--- NOTE | 2025-06-18 16:17 | NUR ---
PT ASSESSMENT AND I/O REVIEWED WITH MD - INCREASE IVF 150ML/HR.
[2025-06-18] MEDS ORDERED: IBLOOD GLUCOSE TEST STRIP 1 EA TEST XX SCH ×2 (17:00→20:00)
[2025-06-18] MEDS ORDERED: INSULIN LISPRO 100 UNIT/ML ML SUB-Q SCH (17:00)
[2025-06-18] MEDS ORDERED: PEPTO-BISM262 MG/15 PO (17:36)
[2025-06-18] MEDS ORDERED: REGULOID PO (17:37)
[2025-06-18] MEDS ORDERED: STIMULANT LAXA1 EACH PO (17:38)
[2025-06-18] MEDS ORDERED: BACTRIM DS TAB1 EACH PO (17:38)
[2025-06-18] MEDS ORDERED: VITAMIN D325 MCG PO (17:39)
[2025-06-18] MEDS ORDERED: VISINE TIRED EY15 ML OU (17:39)
--- NOTE | 2025-06-18 17:40 | NUR ---
MED REC COMPLETE
--- NOTE | 2025-06-18 18:13 | NUR ---
PT DROWSY, REQUIRES WAKING WITH VOICE AND TOUCH STIMULATION. PT DENIES WANTING TO EAT DINNER. DOES DRINK WATER AND SODA WELL WHEN OFFERED. PT REPOSISTIONED TO RIGHT SIDE AND HEELS FLOATED WITH PILLOWS. VS STABLE, BP REMAINS SOFT WITH MAPS >65. AFEBRILE. URINE OUTPUT QS.
--- NOTE | 2025-06-18 19:50 | NUR ---
HANDOFF REPORT RECEIVED FROM DAY SHIFT RN. PATIENT RESTING IN BED WITH EYES CLOSED, RR 17. NO SIGNS OF ACUTE DISTRESS NOTED. PATIENT HAS CALL LIGHT IN REACH.
--- NOTE | 2025-06-18 20:45 | NUR ---
PATIENT ASSESSMENT COMPLETE. PATIENT AWAKE, ORIENTED TO SELF ONLY. PATIENT LEFT WRIST IV D/C. PATIENT RIGHT AC IV SITE WNL, IVF INFUSING PER EMAR. PATIENT GARDNER CATH INTACT, GARDNER CARE COMPLETE. BRIEF CLEAN AND DRY. PATIENT REMAINS ON ROOM AIR, TOLERATING WELL. VITAL SIGNS STABLE. PATIENT NOTED TO BE TACHYCARDIC, HEART RATE 100-115. PATIENT DENIES FEELING ANY PAIN, SOB, OR NAUSEA AT THIS TIME. PATIENT HAS CALL LIGHT IN REACH.
[2025-06-18] MEDS ORDERED: levETIRAcetam 500 MG TAB PO SCH (21:00)
[2025-06-18] MEDS ORDERED: AMITRIPTYLINE HCL 100 MG TAB PO SCH (21:00)
[2025-06-18] MEDS ORDERED: MELATONIN 3 MG TAB PO PRN (21:00)
--- NOTE | 2025-06-18 22:05 | NUR ---
PATIENT CBG READING 74. PATIENT GIVEN PUDDING AND APPLE JUICE - TOLERATES WELL. THIS RN REMAINS IN ROOM.
--- NOTE | 2025-06-18 23:04 | NUR ---
PATIENT REPOSITIONED IN BED. IVF INFUSING PER EMAR, SITE WNL. PATIENT DENIES ANY FURTHER NEEDS AT THIS TIME. LIGHTS DIMMED. CALL LIGHT IN REACH.
[2025-06-19] VITALS (12 sets, daily range): BP systolic 108–141; BP diastolic 56–81
--- NOTE | 2025-06-19 01:00 | NUR ---
PATIENT RESTING WITH EYES CLOSED, RESPIRATIONS EVEN AND UNLABORED. NO SIGNS OF ACUTE DISTRESS NOTED. PATIENT VITAL SIGNS STABLE. CALL LIGHT IN REACH.
--- NOTE | 2025-06-19 02:20 | NUR ---
PATIENT CBG 116. PATIENT BRIEFLY WAKES UP THEN DRIFTS BACK TO SLEEP. PATIENT GARDNER INTACT. BRIEF CLEAN AND DRY. VITAL SIGNS STABLE. NO NEEDS AT THIS TIME. CALL LIGHT IN REACH.
--- NOTE | 2025-06-19 04:32 | NUR ---
patient moved to med-surg room 109. handoff report given to Gloria MCMAHAN. all questions answered. patient belongings taken with patient.
--- NOTE | 2025-06-19 04:37 | NUR ---
Pt admitted at 0415 from CCU to room 109. alert to self, garbled speech, on room air, lungs clesar uppers and dim at bases, does not know how to take deep breaths when asked. abd soft, LBM yesterday. chronic f/c in place, attends in place. 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 IVF infusing RFA
--- NOTE | 2025-06-19 05:57 | NUR ---
RESTING, EYES CLOSED, ON ROOM AIR, NO S/S DISTRES, IVF INFUSING, F/C PATENT ALARMS IN PLACE, TELE#6, SR
[2025-06-19 07:55] LABS: BASOPHILS 0.3 % (0.2-1.2); EOSINOPHILS 1.6 % (0.8-7.0); LYMPHOCYTES 7.5 % (21.8-53.1); MCH 29.2 PG (25.7-32.2); MCHC 31.4 g/dL (32.3-36.5); MCV 93.0 fL (79.0-92.2); MONOCYTES 10.5 % (5.3-12.2); NEUTROPHILS 79.1 % (34.0-67.9); RBC 3.73 M/uL (4.63-6.08)
[2025-06-19 08:10] LABS: ALT (SGPT) 39.0 U/L (14-59); AST (SGOT) 43.0 U/L (15-37); GLOMERULAR FILTRATION RATE,EST 34.0 mL/min (>60); PHOSPHORUS, INORGANIC 2.4 mg/dL (2.5-4.9); PROTEIN, TOTAL 5.7 g/dL (6.4-8.2); UREA NITROGEN 32.0 mg/dL (7-18)
--- NOTE | 2025-06-19 08:23 | NUR ---
Verbal order obtained from Dr. Miller to stop IV fluids on this patient and he advised that this pt is a "feeder" and needs help being fed his meals. Primary RN notified.
[2025-06-19] MEDS ORDERED: FINASTERIDE 5 MG TAB PO SCH (09:00)
--- NOTE | 2025-06-19 09:27 | NUR ---
ASSISTED PATIENT WITH EATING BREAKFAST. PATIENT IS DRINKING WELL AND HAD ONE COFFEE AND TWO ANAYA. ONLY WANTED TO EAT HIS EGGS AND UNINTERESTED IN ALL OTHER BREAKFAST FOODS.
--- NOTE | 2025-06-19 10:29 | NUR ---
POST BREAKFAST PATIENT STATED HE NEEDED TO MAKE A BOWEL MOVEMENT. AT THIS TIME I HAD CLEANED UP BREAKFAST AND MARTIR ALATORRE WALKED INTO THE ROOM. SHE ASSISTED ME IN ROLLING PATIENT TO CHECK FOR BOWEL MOVEMENT. UPON LIFTING COVERS WE SEEN THAT PATIENT HAD LIQUID STOOL LEAKING OUT OF HIS BRIEF. TOGETHER WE ROLLED PATIENT AND GOT HIM CLEANED UP AND FRESH LINENS PLACED. MICAH JONES WAS CALLED IN TO ASSIST WITH HOLDING THE PATIENT. MARTIR STUART WAS ALSO CALLED IN TO CHECK ON SOME SEDIMENT IN THE GARDNER CATHETER TUBING. ONCE PATIENT WAS CLEAN, WITH A FRESH BRIEF AND FRESH LINENS I LAYED HIM BACK INTO A COMFORTABLE POSITION WITH PILLOWS SUPPORTING HIM AND WARM BLANKETS. HE HAD NO FURTHER NEEDS AND MARTIR ALATORRE NO LONGER NEEDED MY ASSISTANCE WITH HER TASKS.
--- NOTE | 2025-06-19 10:33 | NUR ---
In with pt for IV pump alarming, "infusion complete". Pt is resting quietly with eyes closed, breathing is regular, even, and non-labored. Pt begins to mumble quietly when assessing the IV site but no c/o pain, IV flushes well, capped and S/L. Pt continues to rest quietly. Call light in reach. Primary RN notified.
--- NOTE | 2025-06-19 14:32 | NUR ---
Patient awake, alert to self and place, no acute distress. Patient repositioned for comfort. Patient denies pain at this time. Sharp cath intact/ patent, notable yellow urine with sediment. Bed alarm intact, pt denies needs at this time.
--- NOTE | 2025-06-19 15:00 | NUR ---
PATIENT IS LAYING IN BED. PATIENTS BRIEF WAS CHECKED AND WAS DRY. CALL LIGHT IS WITHIN REACH AND NO FURTHER NEEDS AT THIS TIME.
--- NOTE | 2025-06-19 17:40 | NUR ---
PT REC'D FOR CARE. REPORT REC'D FROM MARTIR ALATORRE. PT BEING FED MINCED AND MOIST DIET BY CUTTER GRINDER OPERATOR. PT ALERT, ORIENTED TO SELF, RE-ORIENTED TO PLACE AND TIME. PT SITTING UP IN BED, WITH WAFFLE MATRESS IN USE. PT DENIES C/O AT THIS TIME. VSS. PT WITH 2 INCONTINENT STOOLS TODAY, CONTRACTIONS NOTED TO HANDS BILAT, BS+ F/C DRAINING YELLOW URINE WITH SCANT SEDIMENT, TRACE EDEMA TO BLE. ALLEVIN TO COCCYX. IV TO R AC PATENT AND FLUSHED. CALL SALGUERO IN REACH, BED IN LOW POSITION AND LOCKED. SIDERAILS UP X4, BED ALARM ACTIVATED.
--- NOTE | 2025-06-19 18:36 | NUR ---
PT RESTING T/O TIME OF CARE, NO C/O VERBALIZED. CALL SALGUERO IN REACH, WAFFLE MATRESS IN PLACE, SIDERAILS UP X4, BED LOW POSITION AND LOCKED, BED ALARM IN USE. CPOX IN USE AT BEDSIDE, RA SPO2 96%
--- NOTE | 2025-06-19 19:28 | NUR ---
pt iin bed, hob elevated, garbled speech, on room air, cppox at bedside, f/c in place.
--- NOTE | 2025-06-19 20:19 | NUR ---
PT AWAKE, GARBLED SPEECH, COOPERATIVE, CONTRACTURE OF HANDS AND PARALYZED L SIDED FROM PREVIOUS STROKE, LEGS ELEVATED, ONR OOM AIR, CPOX AT BEDSIDE, F/C PATENT. DRAINING CLEAR YELLOW URINE. CARE DONE. TURNED AND REPOSITIONED, MEDS GIVEN WITH PUDIN. TOLERATED WELL, ASPIRATION,SEIZURE AND FALL PRECAUTIONS IN PLACE, ALARMS.
[2025-06-19] MEDS ORDERED: PHENYTOIN SODIUM 100 MG CAP PO SCH (21:00)
[2025-06-20] VITALS (8 sets, daily range): BP systolic 145–458; BP diastolic 66–79
--- NOTE | 2025-06-20 02:25 | NUR ---
RESTING, EYES CLOSED, AWAKENS EASILY, REPOSITIONED. ON ROOM AIR, CPOX AT BEDSIDE, F/C PATENT
--- NOTE | 2025-06-20 05:08 | NUR ---
Awakens easily, On room air. no s/sx distress. Repositioned and turned in bed. contractures of hands, weakness/gross movement of L sided. f/c patent. Draining clear yellow urine. LE elevated with pillows. Cooperative with vitals and assessments
--- NOTE | 2025-06-20 05:10 | NUR ---
Repositioned Pt and adjusted pillows with RN. No other needs expressed by Pt. Call light left in reach.
[2025-06-20 05:32] LABS: BASOPHILS 0.4 % (0.2-1.2); EOSINOPHILS 1.4 % (0.8-7.0); LYMPHOCYTES 13.2 % (21.8-53.1); MCH 29.0 PG (25.7-32.2); MCHC 31.5 g/dL (32.3-36.5); MCV 91.9 fL (79.0-92.2); MONOCYTES 13.0 % (5.3-12.2); NEUTROPHILS 70.7 % (34.0-67.9); RBC 3.35 M/uL (4.63-6.08)
[2025-06-20 05:51] LABS: ALT (SGPT) 32.0 U/L (14-59); AST (SGOT) 32.0 U/L (15-37); GLOMERULAR FILTRATION RATE,EST 44.0 mL/min (>60); PHOSPHORUS, INORGANIC 2.6 mg/dL (2.5-4.9); PROTEIN, TOTAL 5.2 g/dL (6.4-8.2); UREA NITROGEN 25.0 mg/dL (7-18)
--- NOTE | 2025-06-20 06:20 | NUR ---
dR Lassiter NOTIFIED OF PTS TAYLOR na OF 155 AND k 2.8. nEW TELEPHONE ORDERS TO GIVE 40 mEq potassium po now.
[2025-06-20] MEDS ORDERED: POTASSIUM CHLORIDE 10 MEQ TABCR PO ONE (06:30)
--- NOTE | 2025-06-20 07:07 | NUR ---
Pt was incontinent of large amount of semiliquid brown colores, strong smelling bm, skin care and f/c care done. red areas noted in chantal creases, Allevynto buttocks/coccyx area removed. clean attends in [facility], all cares explained. Pt took 40 mEq tabs
--- NOTE | 2025-06-20 07:15 | NUR ---
Pt report received from RN Gloria. Pt is resting in bed, with HOB elevated. Staff had just finished cleaning the pt after a large, odiferous, liquid bowel movement. Some smears of stool were collected in the event that the hospitalist wants to order a c.diff. Pt call light in reach.
[2025-06-20] MEDS ORDERED: POTASSIUM CHLORIDE 10 MEQ TABCR PO SCH (09:00)
--- NOTE | 2025-06-20 09:00 | NUR ---
HOURLY ROUNDING PATIENT LAYING IN BED, NO REQUEST FROM PATIENT AT THIS TIME
--- NOTE | 2025-06-20 09:26 | NUR ---
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 HE LIKES CHOCOLATE ENSURES. TWO OF THEM WAS GIVEN. ITS HARD FOR PATIENT TO EAT WITH NO TEETH HE REPORTS. NO FURTHER REQUEST FROM PATIENT AT THIS TIME
--- NOTE | 2025-06-20 10:08 | NUR ---
pt AWAKE RESTING IN BED. REPOSITIONED HIGHER IN BED 2PA TO BOOST. PO MEDICATIONS ADMINISTERED WITH BITES OF PUDDING WNL. IV SITE FLUSHED WNL, IV ANTIBIOTIC INFUSING ORDERED. pt PLACED ON BED SPRAGUE PER REQUEST. CALL LIGHT IN LAP. pt VERBALIZES UNDERSTANDING OF HOW TO CALL.
--- NOTE | 2025-06-20 11:34 | NUR ---
PC to Dr. Miller to inquire whether or not he would like the 0900 dose of potassium to be administered to this pt after he received 40meq at 0700 hours. He advised to hold the 0900 dose and give the 2100 dose.
[2025-06-20] MEDS ORDERED: LIDOCAINE 2% VISCOUS 6 ML SYR TOP ONE (11:45)
--- NOTE | 2025-06-20 12:22 | NUR ---
IN ROOM TO CHANGE GARDNER CATHETER. pt INCONTINENT OF LARGE SOFT/LIQUID STOOL. ATTENDS, TJ, LINEMONALISA, GOWN CHANGED. GARDNER DC'D. NEW GARDNER PLACED WNL, STERILE TECHNIQUE MAINTAINED. pt EDUCATION PROVIDED. pt REPOSITIONED IN BED, HOB ELEVATED. PILLOW UNDER LEGS. AWAKE WATCHING TV. CALL LIGHT IN REACH. BED ALARM ON.
--- NOTE | 2025-06-20 12:45 | NUR ---
In with pt for hourly rounding and to assist him with eating his lunch. Pt is awake, watching tv. HOB elevated to facilitate consuming his lunch. Pt offered water, of which he drank a total of 750ml before I eventually left it with him to hold at his request. Pt ate his pears off his lunch tray and two bites of chicken and mashed potatoes; however, after chewing the second bite for several minutes, he spit it into an emesis bag. He has, according to Britney, drank [address] ensures [address] far[address] iMller requested earlier this morning that we encourage PO fluids. Side rails up x4, call light in reach.
--- NOTE | 2025-06-20 13:15 | NUR ---
HOURLY ROUNDING NURSE AT BEDSIDE, NO REQUEST AT THIS TIME
[2025-06-20] MEDS ORDERED: LACTOBACILLUS RHAMNOSUS GG 1 EACH CAP PO SCH (13:24)
--- NOTE | 2025-06-20 14:24 | NUR ---
IN ROOM FOR MEDICATION ADMINISTRATION. pt AWAKE, SITS UP. SWALLOWS MEDICATION WNL WITH PUDDING. WATER REFILLED AND DRINKS PROVIDED. CALL LIGHT IN REACH.
--- NOTE | 2025-06-20 15:32 | NUR ---
In with pt for med administration. Pt is supine in bed with HOB elevated, tv on, pt's eyes are closed, breathing is regular, even, and non-labored. Pt awakens easily to quiet noise. Administered scheduled meds with chocolate pudding. Pt ate 3/4 of the rest of his pudding, then drank 400ml of water. Pt able to hold his cup and drink from the straw. Pt finished drinking water and is now watching TV. Denies further needs. Call light in reach.
--- NOTE | 2025-06-20 17:50 | NUR ---
HOURLY ROUNDING PATIENT SITTING UP IN BED, NURSE AT BEDSIDE. VITAL HAVEB BEEN COMPLETED AND CALL LIGHT HAS BEEN PLACED WITHIN REACH
--- NOTE | 2025-06-20 18:09 | NUR ---
PATIENT DINNER SITTING ON SINK HARDLY ATE. CURTAIN MENDER WAS GOING TO GO IN LATER TO TRY AGAIN. THIS NURSE ASKED PATIENT IF HE WOULD LIKE MORE AND HE SAID YES. PATIENT FED BY THIS NURSE, ATE ABOUT 15 MORE BITES.
--- NOTE | 2025-06-20 18:40 | NUR ---
INTO PATIENTS ROOM TO CLEAN ROOM.
--- NOTE | 2025-06-20 20:24 | NUR ---
pt on room air, garbled but understandable speech, on room air, pleasnt and cooperative, lungs cleasr bilat, abd soft, deejay, LBM today, slight redness inguinal area, f/c patent, p[ericare done. 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 L arm elevated. Meds taken with pudin, aspiration precautions in place, tolerated well,
[2025-06-20] MEDS ORDERED: levETIRAcetam 500 MG TAB PO SCH (21:00)
[2025-06-21] VITALS (9 sets, daily range): BP systolic 135–152; BP diastolic 72–79
--- NOTE | 2025-06-21 00:36 | NUR ---
Resting, eyes closed, no s/sx distress, f/c patent, Repositioned in bed,
[2025-06-21 05:32] LABS: BASOPHILS 0.4 % (0.2-1.2); EOSINOPHILS 2.7 % (0.8-7.0); LYMPHOCYTES 21.1 % (21.8-53.1); MCH 29.0 PG (25.7-32.2); MCHC 31.6 g/dL (32.3-36.5); MCV 92.0 fL (79.0-92.2); MONOCYTES 9.7 % (5.3-12.2); NEUTROPHILS 64.1 % (34.0-67.9); RBC 3.48 M/uL (4.63-6.08)
[2025-06-21 05:50] LABS: GLOMERULAR FILTRATION RATE,EST 65.0 mL/min (>60); UREA NITROGEN 23.0 mg/dL (7-18)
--- NOTE | 2025-06-21 06:57 | NUR ---
Pt report received from MARTIR Castro. Pt is resting in bed leaning towards his right side. His eyes are closed but he opens them as I move to that side of the bed. Breathing is regular, even, and non-labored. Call light in reach. Pt denies needs at this time. White board updated.
[2025-06-21] MEDS ORDERED: 1/2 NS IV SCH (08:00)
[2025-06-21] MEDS ORDERED: KCL IV SCH (08:00)
--- NOTE | 2025-06-21 08:13 | NUR ---
HOURLY ROUNDING PATIENT LAYING IN BED. PATIENT IS A FEEDER, FED BREAKFEAST ATE 40% OF THE MEAL. PATIENT INCOT OF STOOL, LIQUID RUNNY STOOL. BED BATH WAS GIVEN AND LINENS HAVE BEEN CHANGED. AM CARE COMPLETED. CALL LIGHT HAS BEEN PLACED WITHIN REACH
--- NOTE | 2025-06-21 09:30 | NUR ---
In with pt for medication administration. Aide Britney in as well, to assist placing pt on the bedpan as he states he needs to have a BM. Pt did not have a BM. Floated pt to right side. Reassessed IV site and noted it to be leaking. IV D/C'd at this time. Attempted one IV insertion on left arm, unsuccessful. chair inspector and leveler notified, and she will attempt to start a new IV. Pt took his A.M. oral meds with pudding and tolerated well. After chantal care, pt bed was placed in a position of comfort and he closed his eyes and fell asleep. Call light in reach, TV on.
--- NOTE | 2025-06-21 10:42 | NUR ---
SPOKE WITH JESUS AT [facility] THIS AM. UPDATES FAXED TO THE FACILITY. PATIENT WILL RETURN TO [facility] WHEN MEDICALLY READY IN 2-3 DAYS. NO CM NEEDS AT THIS TIME.
--- NOTE | 2025-06-21 11:02 | NUR ---
Spoke with Dr. Miller and asked if he would prefer to have this pt's diet changed to 2G sodium diet r/t his elevated serum sodium levels. Verbal order obtained to change diet to 2G sodium diet from regular diet.
--- NOTE | 2025-06-21 13:33 | NUR ---
RECEIVED CALL FROM RONNA AT [facility]. HE RECEIVES [facility]TER [facility] AND WILL NEED RESUMPTION ORDERS AT TIME OF DISCHARGE.
--- NOTE | 2025-06-21 13:44 | NUR ---
Pt lunch tray is still in room. Pt is resting supine with eyes closed, breathing is regular, even, and non-labored. Pt awakens easily to voice. When asked if he'd like to eat lunch, pt states he is thirsty, not hungry. Pt drank 350ml of watered down cranberry juice, then started drinking his iced water as well. Pt has been very thirsty. His output from 10am to 2pm was 800ml clear yellow urine. Will reassess his desire to eat. VS obtained. Side rails up x4, call light in reach, IVF running at ordered rate.
--- NOTE | 2025-06-21 14:26 | NUR ---
PC to Dr. Miller to update him on the intake and output for this patient since 0700 hours this shift. Pt has had a minimum oral intake of 1900ml (much of which was witnessed being drank by this RN), and IV intake thus far of 272. Urine out put since 0700 this shift is 2600ml. Verbal order obtained from Dr. Miller to redraw a BMP at 1700 hours today.
--- NOTE | 2025-06-21 15:55 | NUR ---
In with pt for med administration per emar. Pt is awake, watching TV, his water cup is empty (400ml). Refilled water cup, pills administered with chocolate pudding. Pt currently drinking 350ml water, rapidly. IVF running per emar.
[2025-06-21 17:44] LABS: GLOMERULAR FILTRATION RATE,EST 87.0 mL/min (>60); UREA NITROGEN 19.0 mg/dL (7-18)
--- NOTE | 2025-06-21 17:44 | NUR ---
HOURLY ROUDNING PATIENT LAYING IN BED, DRINKING LOTA OF WATER. CALL LIGHT HAS BEEN PLACED WITHIN REACH. PATIET WAS FED DINNER
--- NOTE | 2025-06-21 20:02 | NUR ---
PT SITTING UP POSITION IN BED. ON ROOM AIR, CLEAR LUNGS, ABD SOFT, INCONTINENT OF LARGE AMOUNT OF SEMISOFT LIQUID BM, SKIN CARE DONE, LOTION TO RED INGUINAL AND ANNETTE AREAS. CLEAN ATTENDS AND F/C CARE DONE TOO. F.C DRAINING CLEAR YELLOW URINE. CONTRACTURES OF HANDS AND L SIDED DEFICIT FROM PREVIOUS STROKE. SLURRED SPEECH PRESENT, ALERT TO SELF ONLY, PLEASNAT AND COOPERATIVE, C/O TENDERNESS WHEN MOVEN NO FURTHER C/O AFTER COMPLETION. WAS TURNED AND REPOSITIONED IN BED, COOPERATIVE, ASPIRATION,FLL AND SEIZURE PRECAUTIONS IN BED. WILL GIVE MEDS WITH PUDING.
--- NOTE | 2025-06-21 23:15 | NUR ---
resting eyes closed, repositioned, f/c patent, hob elevated
[2025-06-22] VITALS (10 sets, daily range): BP systolic 128–157; BP diastolic 61–84
--- NOTE | 2025-06-22 03:03 | NUR ---
Resting, eyes closed, repositioned in bed, f/c patent. Tolerated well
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
[2025-06-22 05:50] LABS: BASOPHILS 0.5 % (0.2-1.2); EOSINOPHILS 3.2 % (0.8-7.0); LYMPHOCYTES 20.7 % (21.8-53.1); MCH 29.8 PG (25.7-32.2); MCHC 32.4 g/dL (32.3-36.5); MCV 92.0 fL (79.0-92.2); MONOCYTES 8.9 % (5.3-12.2); NEUTROPHILS 65.1 % (34.0-67.9); RBC 3.36 M/uL (4.63-6.08)
[2025-06-22 06:16] LABS: ALT (SGPT) 38.0 U/L (14-59); AST (SGOT) 39.0 U/L (15-37); GLOMERULAR FILTRATION RATE,EST 73.0 mL/min (>60); PHOSPHORUS, INORGANIC 3.3 mg/dL (2.5-4.9); PROTEIN, TOTAL 5.1 g/dL (6.4-8.2); UREA NITROGEN 13.0 mg/dL (7-18)
--- NOTE | 2025-06-22 07:05 | NUR ---
REPORT RECEIVED FROM LAWSON MCMAHAN.
--- NOTE | 2025-06-22 07:29 | NUR ---
HOURLY ROUNDING WHEN [id number] ON PTIENT, PTIENT WAS FOUND SOILED BREIF. PATIENT WAS A TWO PERSON ASSIST WHEN CHANGING HIS BREIF, I EMPTIED HIS URINE CATH. NO REQUEST FROM PATIENT AT THIS TIME BOARD HAS BEEN UPDATED AND CALL LIGHT HAS BEEN PLACED WITHIN REACH
[2025-06-22] MEDS ORDERED: DEXTROSE 5% 1,000 ML IV SCH (08:00)
[2025-06-22] MEDS ORDERED: MAGNESIUM OXIDE 400 MG TABLET PO SCH (09:00)
[2025-06-22] MEDS ORDERED: FLUCONAZOLE 200 MG TAB PO SCH (09:00)
[2025-06-22] MEDS ORDERED: levETIRAcetam 500 MG TAB PO SCH (09:00)
--- NOTE | 2025-06-22 09:30 | NUR ---
PT INCONTINENT OF BOWEL, DIARRHEA X 1 MOD BROWN STOOL. PT CLEANED AND BED CHANGED. PT REPOSITIONED. CALL LIGHT WITHIN REACH. PT IS CONFUSED, ORIENTED TO SELF ONLY. BED ALARM ON. PT ASSISTED WITH DRINKING WATER, SITTING UP IN BED. NO OTHER REQUESTS AT THIS TIME.
--- NOTE | 2025-06-22 09:31 | NUR ---
UPDATES SENT TO JAYMIE AT [facility] VIA SECURE EMAIL [email or web address].
--- NOTE | 2025-06-22 11:10 | NUR ---
HOURLY ROUNDING FLOAT PATIENT ON THE LEFT SIDE. NO REQUEST CALL LIGHT IS WITHIN REACH
--- NOTE | 2025-06-22 12:08 | NUR ---
PT SITTING UP IN BED EATING LUNCH WITH ASSISTANCE OF MERCHANDISER SEASONAL. CALL LIGHT WITHIN REACH.
--- NOTE | 2025-06-22 12:21 | NUR ---
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 SET AND FED PATIENT HE ATE ABOUT 25% OF HIS MEAL. GARDNER CARE COMPLTED AND FLOATED PATIENT ON LEFT SIDE. CALL LIGHT HAS BEEN PLACED WITHIN REACH
--- NOTE | 2025-06-22 12:45 | NUR ---
PT SITTING IN BED WATCHING TV. CALL LIGHT WITHIN REACH AND BED ALARM ON.
--- NOTE | 2025-06-22 13:49 | NUR ---
PT RESTING IN BED WITH EYES CLOSED AND RESPIRATIONS EVEN AND UNLABORED. CALL LIGHT WITHIN REACH, BED ALARM ON.
--- NOTE | 2025-06-22 15:30 | NUR ---
Assisted RN with repositioning Pt in bed and turning with pilows. No other needs expressed by Pt. Call light left in reach. Bed alarm set.
--- NOTE | 2025-06-22 15:34 | NUR ---
PT REPOSITIONED AND CATHETER CARE PERFORMED. PT GIVEN A CUP OF COFFEE REQUESTED AND IS SITTING UP IN BED. CALL LIGHT WITHIN REACH AND BED ALARM ON. PT HAS NO OTHER REQUESTS AT THIS TIME.
--- NOTE | 2025-06-22 17:25 | NUR ---
PT SITTING UP IN BED, ONLY TOOK A FEW BITES OF APPLESAUCE FOR DINNER. PT STATES HE IS NOT HUNGRY TONIGHT. CALL LIGHT WITHIN REACH AND BED ALARM ON.
[2025-06-22 17:32] LABS: GLOMERULAR FILTRATION RATE,EST 90.0 mL/min (>60); UREA NITROGEN 15.0 mg/dL (7-18)
--- NOTE | 2025-06-22 17:51 | NUR ---
PATIENT IN BED WATCHING TV AT THIS TIME. VITALS AND I&O'S DONE AND CHARTED. FRESH WATER GIVEN. DEPENDS CHECKED AND CLEAN. CALL LIGHT IN REACH. BED ALARM ON. NO FURTHER NEEDS AT THIS TIME.
--- NOTE | 2025-06-22 18:42 | NUR ---
PT WAS INCONTINENT OF LARGE LOOSE STOOL. PT CLEANED, BRIEF CHANGED, BARRIER CREAM APPLIED, AND PT REPOSITIONED. NO REQUESTS AT THIS TIME. CALL LIGHT WITHIN REACH AND BED ALARM ON.
--- NOTE | 2025-06-22 19:30 | NUR ---
VERBAL REPORT RECEIVED BY ABIGAIL MCMAHAN. PATIENT IS RESTING IN BED AWAKE AT THIS TIME. PATIENT DENIES ANY NEEDS AT THE MOMENT. CALL LIGHT WITHIN REACH.
--- NOTE | 2025-06-22 21:12 | NUR ---
PATIENT IS INCONTINENT WITH LIQUIDY GREENISH STOOL. ANNETTE CARE AND GARDNER CARE COMPLETED. V/S AND i&O'S DONE. PATIENT REPOSITIONED TO FLOATING.
--- NOTE | 2025-06-22 21:44 | NUR ---
MEDICATION ADMINISTRATION COMPLETE. PATIENT SWALLOWED MEDICATIONS WITH PUDDING WELL. PATIENT URINATES CLEAR YELLOW URINE VIA GARDNER. PATIENT HAD BM, GARDNER CARE AND ANNETTE CARE PERFORMED. FRESH BRIEF AND BARRIER CREAM APPLIED. PATIENT DENIES ANY FURTHER NEEDS AT THIS TIME. BED ALARM ON FOR PATIENT SAFETY. CALL LIGHT WITHIN REACH.
--- NOTE | 2025-06-22 23:06 | NUR ---
IV PUMP ALARMING. NEW BAG IVF INFUSING PER ORDER. PT AGREES HE IS RESTING COMFORTABLY. DENIES NEEDS. CALL LIGHT IN REACH. BED ALARM FOR SAFETY.
--- NOTE | 2025-06-22 23:48 | NUR ---
PATIENT RESTING IN BED EYES CLOSED, RR EVEN AND UNLABORED. BED ALARM ON FOR PATIENT SAFETY. CALL LIGHT WITHIN REACH.
[2025-06-23] VITALS (10 sets, daily range): BP systolic 113–151; BP diastolic 71–90
--- NOTE | 2025-06-23 00:35 | NUR ---
PATIENT REPOSITIONED FOR COMFORT, LEFT HIP OFFLOADED WITH PILLOW. BED ALARM ON FOR PATIENT SAFETY. CALL LIGHT WITHIN REACH.
--- NOTE | 2025-06-23 02:19 | NUR ---
PATIENT REPOSITIONED FOR COMFORT. PATIENT RESTING EYES CLOSED, RESPIRATIONS EVEN AND UNLABORED. BED ALARM ON FOR PATIENT SAFETY. CALL LIGHT WITHIN REACH.
--- NOTE | 2025-06-23 03:19 | NUR ---
ROUNDING TIME. PATIENT IS LAYING IN BED WITH ONE PILLOW ON HIS RIGHT SIDE RR 16 UNLABORED BREATHING. BED ALARM ON FOR SAFETY.
--- NOTE | 2025-06-23 03:34 | NUR ---
pt RESTING IN BED EYES CLOSED, RESPIRATIONS EVEN AND UNLABORED. BED ALARM ON FOR pt SAFETY CALL LIGHT IN REACH.
--- NOTE | 2025-06-23 05:20 | NUR ---
PATIENT REPOSITIONED IN BED FOR COMFORT. UA SENT TO LAB. WARM BLANKET PROVIDED. BED ALARM ON FOR PATIENT SAFETY. CALL LIGHT WITHIN REACH.
[2025-06-23 05:26] LABS: BLOOD/HGB, URINE TRACE-I (Negative); KETONE, URINE NEGATIVE (Negative); LEUK ESTERASE, URINE NEGATIVE (negative); NITRITE, URINE NEGATIVE (negative)
[2025-06-23 05:32] LABS: EPITHELIAL CELLS, URINE SQUAMOUS 1+ /lpf (0-1+)
[2025-06-23 05:33] LABS: BACTERIA, URINE RARE /hpf (negative); CASTS, URINE NONE SEEN \\lpf; CRYSTALS, URINE NONE SEEN (0-1+); REFLEX CULTURE, URINE No (No)
[2025-06-23 05:49] LABS: GLOMERULAR FILTRATION RATE,EST 78.0 mL/min (>60); UREA NITROGEN 12.0 mg/dL (7-18)
--- NOTE | 2025-06-23 06:50 | NUR ---
PATIENT RESTING IN BED. RR EVEN AND UNLABORED. BED ALARM ON FOR PATIENT SAFETY. CALL LIGHT WITHIN REACH.
--- NOTE | 2025-06-23 07:04 | NUR ---
RECIEVED REPORT FROM MARTIR MILAN. PT IS RESTING IN BED WITH EYES CLOSED. RR ARE EVEN AND UNLABORED. CALL LIGHT IS WITHIN REACH.
--- NOTE | 2025-06-23 08:27 | NUR ---
PATIENT IN BED AT THIS TIME. THIS SOUS CHEF CHARTED HOURYL ROUNDS. PATIENT REFUSED AM CARE AND GETTING IN CHAIR. CALL LIGHT WITHIN REACH, NO FUTHER NEEDS.
[2025-06-23 08:48] LABS: TSH, 3RD GENERATION 3.115 uIU/mL (0.358-3.740)
[2025-06-23] MEDS ORDERED: DESMOPRESSIN ACETATE 0.1 MG TAB PO SCH (09:00)
--- NOTE | 2025-06-23 09:24 | NUR ---
SITTING UP IN BED, JUST FINISHED BREAKFAST. NO CM NEEDS. WILL CALL [facility] TO DISCUSS NURSE ASSESSMENT FOR PATIENT RETURN.
--- NOTE | 2025-06-23 09:34 | NUR ---
[facility] SHE IS GOING TO SEE PATIENT THIS AFTERNOON, REQUESTING UPDATED NOTES BE EMAILED TO [email or web address].
--- NOTE | 2025-06-23 10:04 | NUR ---
PT RESTING UPRIGHT IN BED. UA OBTAINED AT THIS TIME. CALL LIGHT AND PERSONAL BELONGINGS ARE WITHIN REACH. NO NEEDS AT THIS TIME.
--- NOTE | 2025-06-23 10:25 | NUR ---
UPDATES EMAILED TO MARTIR STACK
--- NOTE | 2025-06-23 11:15 | NUR ---
THIS RN AND RN ABIGAIL IN ROOM TO REPOSITION PT. PT HAD LARGE BOWEL MOVEMENT IN BED. FRESH CHUX, LINENS, BRIEF, GOWN, AND BARRIER CREAM APPLIED. PT REPOSITIONED ON RIGHT SIDE. HEELS FLOATED. PT DENIES ANY NEEDS AT THIS TIME. CALL LIGHT WITHIN REACH.
--- NOTE | 2025-06-23 12:55 | NUR ---
UA SAMPLE COLLECTED AND SENT TO LAB.
--- NOTE | 2025-06-23 13:01 | NUR ---
PT SITTING UP IN BED WITH LUNCH TRAY. DENIES ANY NEEDS AT THIS TIME. CALL LIGHT WITHIN REACH.
[2025-06-23 13:22] LABS: GLOMERULAR FILTRATION RATE,EST 86.0 mL/min (>60); UREA NITROGEN 14.0 mg/dL (7-18)
--- NOTE | 2025-06-23 13:54 | NUR ---
PATIENT IS LAYING IN BED. PATIENTS VITAL SIGNS AND I&OS WERE DONE. PATIENTS BREIF WAS CHECKED AND DRY. CALL LIGHT IS WITHIN REACH AND NO FURTHER NEEDS AT THIS TIME.
--- NOTE | 2025-06-23 14:00 | NUR ---
PT RESTING IN BED WITH EYES CLOSED RR EVEN AND UNLABORED. CALL LIGHT AND PERSONAL BELONGINGS ARE WITHIN REACH.
--- NOTE | 2025-06-23 15:20 | NUR ---
PT REPOSITIONED IN BED ON L SIDE, WITH ABIGAIL MCMAHAN. 1500 MEDICATIONS ADMINISTERED PER THE EMAR. CALL LIGHT WITHIN REACH, PT WITH NO NEEDS AT THIS TIME.
--- NOTE | 2025-06-23 15:50 | NUR ---
PT RESTING IN BED WITH EYES OPEN, MUTTERING TO SELF. PT HAD REMOVED GOWN AND BEDDING FROM SELF. GOWN AND BEDDING PUT BACK IN PLACE. PT EDUCATED THAT GOWN MUST STAY ON.
--- NOTE | 2025-06-23 17:42 | NUR ---
PATIENT IN BED AT THIS TIME. THIS RFID MANAGER AND RFID MANAGER MILAN CHARTED VITALS AND I&O'S. CALL LIGHT WITHIN REACH, NO FURTHER NEEDS.
--- NOTE | 2025-06-23 17:46 | NUR ---
DR MALDONADO CALLED AND NOTIFIED OF PT'S CHANGE IN DEMEANOR. PT HAS BEEN PLEASANT, COOPERATIVE, AND THANKFUL FOR CARE UNTIL THIS EVENING. PT IS NOW SAYING SEXUALLY INAPPROPRIATE COMMENTS TO STAFF AND APPEARS TO BE TALKING TO HIMSELF AND MENTIONING WANTING TO "FIGHT SOMEONE OUT THERE". PT WAS REASSURED THAT HE IS IN THE HOSPITAL AND IS SAFE. BED ALARM IS ON AND CALL LIGHT IS WITHIN REACH. PT ALSO REFUSED DINNER AT THIS TIME.
--- NOTE | 2025-06-23 19:05 | NUR ---
REPORT RECEIVED FROM CHI MCMAHAN. pt RESTING IN THE BED. BOARD UPDATED. pt DENIES ANY OTHER NEEDS AT THIS TIME. CALL LIGHT WITHIN REACH.
--- NOTE | 2025-06-23 19:24 | NUR ---
PATIENT IN BED AT THIS TIME. THIS STERILE TECHNICIAN AND MICAH YATES ASSISTED PATIENT WITH GETTING ON BED SPRAGUE AND GETTING OFF BED SPRAGUE. BOTH CNAS PROVIDED PATIENT WITH NEW BRIEF, NEW CHUX, AND ANNETTE CARE. CALL LIGHT WITHIN REACH, NO FURTHER NEEDS AT THIS TIME.
--- NOTE | 2025-06-23 20:19 | NUR ---
VITALS DONE, I&O DOCUMENTED. PATIENT RESTING IN BED WITH EYES CLOSED. FRESH WATER GIVEN ON BEDSIDE TABLE. CALL LIGHT WITHIN REACH. BED IN LOW POSITION.
--- NOTE | 2025-06-23 22:00 | NUR ---
IN RM TO DO ASSESSMENT. pt SIDEWAYS IN THE BED AND TRYING TO PUSH THE BEDRAIL DOWN STATING HE "HAS TO TAKE A DUMP." THIS RN REMINDED pt THAT THE pt NEEDED TO HAVE HELP WITH GETTING UP AND THAT HIS LEG ARE WEAK SO THEY HAVE BEEN USING A MICHAEL LIFT. THIS RN SUGGESTED THE USE OF A BED SPRAGUE LIKE THEY HAVE BEEN USING BEFORE pt AGREED. THIS RN AND SECTION MAINTAINER LACY HELP pt GET CENTERED IN THE BED AND PLACED A BED SPRAGUE UNDERNEATH pt. pt DENIES ANY OTHER NEEDS AT THIS TIME. CALL LIGHT WITHIN REACH.
--- NOTE | 2025-06-23 22:15 | NUR ---
BED ALARMING. pt STATES HE IS TRYING TO STAND UP. THIS RN REMINDED pt THAT HIS LEGS ARE WEAK AND THAT HE NEEDS HELP. THAT HE IS A MICHAEL LIFT AT THIS TIME AND NEEDS HELP. THIS RN ASK pt IF HE STILL NEEDS THE BED SPRAGUE. pt STATES NO NOT AT THIS TIME. THIS RN AND MICAH HOUSE TOOK pt OFF BED SPRAGUE AND REPOSITIONED pt IN THE BED. NEW BRIEF PLACED ON pt. SCHEDULED MEDS ADMINISTERED. GARDNER CARE DONE. GARDNER EMPTIED. pt DENIES ANY OTHER NEEDS AT THIS TIME. CALL LIGHT WITHIN REACH.
[2025-06-23 22:25] LABS: GLOMERULAR FILTRATION RATE,EST 89.0 mL/min (>60); UREA NITROGEN 13.0 mg/dL (7-18)
[2025-06-24] VITALS (9 sets, daily range): BP systolic 117–146; BP diastolic 69–90
--- NOTE | 2025-06-24 00:40 | NUR ---
pt RESTING IN THE BED ON LEFT SIDE. NO NEEDS AT THIS TIME. CALL LIGHT WITHIN REACH. RR EVEN AND UNLABORED. CALL LIGHT WITHIN REACH.
--- NOTE | 2025-06-24 01:34 | NUR ---
IN RM TO CHECK ON pt. pt RESTING IN BED WITH EYES CLOSED. RR EVEN AND UNLABORED. WATER REFRESHED. CALL LIGHT WITHIN REACH.
--- NOTE | 2025-06-24 02:35 | NUR ---
pt RESTING IN THE BED WITH EYES CLOSED. RR EVEN AND UNLABORED. CALL LIGHT WITHIN REACH.
--- NOTE | 2025-06-24 04:27 | NUR ---
pt RESTING IN THE BED WITH EYES CLOSED. RR EVEN AND UNLABORED. CALL LIGHT WITHIN REACH.
--- NOTE | 2025-06-24 05:13 | NUR ---
GLASSBLOWER OBTAINED VITALS AND I&O. PT STATES NO NEEDS AT THIS TIME. CALL LIGHT WTIHIN REACH.
[2025-06-24 05:39] LABS: BASOPHILS 0.5 % (0.2-1.2); EOSINOPHILS 2.8 % (0.8-7.0); LYMPHOCYTES 28.1 % (21.8-53.1); MCH 28.6 PG (25.7-32.2); MCHC 31.1 g/dL (32.3-36.5); MCV 91.9 fL (79.0-92.2); MONOCYTES 6.8 % (5.3-12.2); NEUTROPHILS 59.8 % (34.0-67.9); RBC 3.57 M/uL (4.63-6.08)
[2025-06-24 06:00] LABS: ALT (SGPT) 39.0 U/L (14-59); AST (SGOT) 35.0 U/L (15-37); GLOMERULAR FILTRATION RATE,EST 89.0 mL/min (>60); PHOSPHORUS, INORGANIC 3.7 mg/dL (2.5-4.9); PROTEIN, TOTAL 5.9 g/dL (6.4-8.2); UREA NITROGEN 12.0 mg/dL (7-18)
--- NOTE | 2025-06-24 06:29 | NUR ---
VITAL DONE. pt RESTING IN THE BED. IV ASSESSED, WNL. pt DENIES ANY NEEDS AT THIS TIME. CALL LIGHT WITHIN REACH.
--- NOTE | 2025-06-24 07:20 | NUR ---
REPORT RECEIVED FROM MARTIR MEDNEZ. PATIENT RESTING IN BED WITH EYES CLOSED, RESPIRATIONS EVEN AND UNLABORED. IVF INFUSING WITHOUT DIFFICULTY. NO NEEDS IDENTIFIED AT THIS TIME. CALL LIGHT IN REACH.
--- NOTE | 2025-06-24 10:06 | NUR ---
ASSESSMENT COMPLETED. SCHEDULED MEDICATIONS GIVEN PER EMAR. PATIENT ABLE TO SWALLOW MEDICATIONS WITHOUT DIFFICULTY. PATIENT REPOSITIONED IN BED. WASHCLOTH GIVEN. VS AND I&O'S DOCUMENTED. FRESH WATER GIVEN BY MICAH MELENDREZ. PATIENT DENIES FURTHHER NEEDS AT THIS TIME. CALL LIGHT IN REACH.
--- NOTE | 2025-06-24 10:58 | NUR ---
INTO SEE PATIENT. PATIENT FROM [facility]. WILL GO BACK WHEN MEDICALLY CLEARED. IMM ATTEMPTED. SIGNED BY TWO RNS. NO FUTHER CM NEEDS
--- NOTE | 2025-06-24 11:24 | NUR ---
ROUNDED ON PATIENT, RESTING WITH EYES CLOSED, RESPIRATIONS EVEN AND UNLABORED. SEIZURE PADS PUT IN PLACE BY RUSSIAN RUBBER. IVF INFUSING WITHOUT DIFFICULTY. NO NEEDS IDENTIFIED AT THIS TIME. CALL LIGHT IN REACH.
--- NOTE | 2025-06-24 12:20 | NUR ---
PATIENT LUNCH ARRIVED, THIS RN ASSISTED PATIENT WITH TWO BITES OF FOOD AND HE REFUSED THE REST SAYING "IM NOT HUNGRY". PATIENT REPOSITIONED ONTO L SIDE, PILLOW UNDER R HIP, LEFT ARM AND BLE FLOATED WITH PILLOWS. SEIZURE PRECAUTIONS AND BED ALARM ON/IN PLACE. PATIENT ARRANGING BLANKET TRYING TO "PUT MY SHIRT ON" WITH RE-ORIENTATION PROVIDED TO BLANKET. NO NEEDS IDENTIFIED AT THIS TIME. CALL LIGHT IN REACH.
--- NOTE | 2025-06-24 13:15 | NUR ---
ASSISTED PATIENT IN REPOSITIONING WITH STUDIO OPERATOR JJ MELENDREZ CARE COMPLETED. SEIZURE PADS IN PLACE, IVF INFUSING WITHOUT DIFFICULTY. STUDIO OPERATOR IN ROOM OBTAINING VITALS. CALL LIGHT IN REACH.
--- NOTE | 2025-06-24 15:37 | NUR ---
SCHEDULED MEDICATION GIVEN PER EMAR ORDERS. FOCUSED ASSESSMENT COMPLETED. PATIENT IS AWAKE AND ABLE TO TELL ME HIS NAME AND ONLY. PATIENT IS CALM AND LAYING IN BED REFUSING COVERS OR CLOTHES. IV FLUIDS INFUSING WITHOUT DIFFICULTY. SEIZURE PADS ON BED, BED ALARM SET. GARDNER DRAINING WITHOUT DIFFICULTY. PATIENT DENIES PAIN AT THIS TIME. CALL LIGHT IN REACH.
--- NOTE | 2025-06-24 16:45 | NUR ---
PATIENT RESTING IN BED WTIH EYES CLOSED, RESPIRATIONS EVEN AND UNLABORED. SEIZURE PADS IN PLACE, IVF INFUSING WITHOUT DIFFICULTY. CALL LIGHT IN REACH.
--- NOTE | 2025-06-24 17:20 | NUR ---
NEW BAG OF IVF INFUSING WITHOUT DIFFICULTY. PATIENT RESTING WITH EYES CLOSED, RESPIRATIONS EVEN AND UNLABORED. NO NEEDS IDENTIFIED AT THIS TIME. CALL LIGHT IN REACH.
--- NOTE | 2025-06-24 19:26 | NUR ---
REPORT RECEIVED FROM MICHAEL AND TONY, RN. PATIENT RESTING IN BED, RESPIRATIONS EVEN AND UNLABORED. WOKE TO RN ENTERING ROOM. HE DENIES ANY NEEDS AT THIS TIME, CALL LIGHT IN REACH, SEIZURE PADS IN PLACE.
--- NOTE | 2025-06-24 21:02 | NUR ---
ASSESSMENT COMPLETE, PATIENT REPOSITIONED IN BED, BOOSTED. UNDER SHEET CHANGED, WAFFLE MATTRESS IN PLACE. GARDNER CARE COMPLETE. SCHEDULED MEDS GIVEN PER ORDER. PATIENT DENIES ANY NEEDS, PATIENT ORIENTED TO SELF, OTHERWISE DID NOT ANSWER CORRECTLY TO PLACE OR YEAR. CALL LIGHT IN REACH, BED ALARM ON.
[2025-06-24 21:25] LABS: ADRENOCORTICOTROPIC HORMONE 110.0 pg/mL (7.2-63.3)
--- NOTE | 2025-06-24 22:58 | NUR ---
ROUNDED ON PATIENT, HE REPOSITIONED SELF IN BED, PATIENT REMOVED SEIZURE PAD FROM BED, SPILLED WATER ON FLOOR AND MOVED BEDSIDE TABLE. SEIZURE PAD REPLACED, FRESH WATER GIVEN. BED ALARM ON. NO NEEDS, CALL LIGHT IN REACH
[2025-06-25] VITALS (7 sets, daily range): BP systolic 122–129; BP diastolic 66–83
--- NOTE | 2025-06-25 00:31 | NUR ---
ROUNDED ON PATIENT, PATIENT REPOSITIONED SELF, RESPIRATIONS EVEN AND UNLABORED. IVF CONTINUING TO INFUSE WITHOUT DIFFICULTY. SEIZURE PADS IN PLACE, BED ALARM ON. NO NEEDS IDENTFIED, CALL LIGHT IN REACH.
--- NOTE | 2025-06-25 02:10 | NUR ---
PATIENT REPOSITIONED SELF, RESPIRATIONS EVEN AND UNLABORED. IVF CONTINUING TO INFUSE WITHOUT DIFFICULTY. SEIZURE PADS IN PLACE, BED ALARM ON. NO NEEDS IDENTIFIED, CALL LIGHT IN REACH
--- NOTE | 2025-06-25 04:29 | NUR ---
ROUNDED ON PATIENT, PATIENT REPOSITIONED SELF, RESPIRATIONS EVEN AND UNLABORED. PATIENT COVERED SELF WITH BLANKET, IVF CONTINUING TO INFUSE WITHOUT DIFFICULTY. BED ALARM ON, SEIZURE PADS IN PLACE. CALL LIGHT IN REACH
--- NOTE | 2025-06-25 05:35 | NUR ---
NEURO ASSESSMENT COMPLETE, UNCHANGED FROM PREVIOUS. VS OBTAINED AND RECORDED, INTAKE AND OUTPUT DOCUMENTED. PATIENT REPOSITIONED. IV SITE ASSESSED, REDNESS NOTED AND EDEMA. IV SITE DISCONTINUED BY MICAH HOUSE WITH RN PRESENT, CATH TIP INTACT. WARM COMPRESS PLACED OVER SITE WITH COMPRESSION DRESSING. PATIENT DENIES OTHER NEEDS, CALL LIGHT IN REACH.
[2025-06-25 05:43] LABS: BASOPHILS 0.5 % (0.2-1.2); EOSINOPHILS 2.7 % (0.8-7.0); LYMPHOCYTES 30.7 % (21.8-53.1); MCH 29.0 PG (25.7-32.2); MCHC 31.5 g/dL (32.3-36.5); MCV 92.0 fL (79.0-92.2); MONOCYTES 6.1 % (5.3-12.2); NEUTROPHILS 56.6 % (34.0-67.9); RBC 3.38 M/uL (4.63-6.08)
[2025-06-25 06:10] LABS: ALT (SGPT) 36.0 U/L (14-59); AST (SGOT) 33.0 U/L (15-37); GLOMERULAR FILTRATION RATE,EST 88.0 mL/min (>60); PROTEIN, TOTAL 5.8 g/dL (6.4-8.2); UREA NITROGEN 12.0 mg/dL (7-18)
--- NOTE | 2025-06-25 06:24 | NUR ---
TC TO DR. MALDONADO, PER PROVIDER, PATIENT OKAY TO NOT HAVE IV SITE AT THIS TIME. NO NEW ORDERS.
--- NOTE | 2025-06-25 07:00 | NUR ---
REPORT RECEIVED FROM MARTIR WINKLER. PATIENT RESTING IN BED WITH EYES CLOSED, RESPIRATIONS EVEN AND UNLABORED. SEIZURE PADS IN PLACE ON BED, BED ALARM ON. NO NEEDS IDENTIFIED AT THIS TIME. CALL LIGHT IN REACH.
[2025-06-25 10:05] LABS: URINE OSMOLALITY 155 mOsm/kg (50-800)
--- NOTE | 2025-06-25 10:14 | NUR ---
SCHEDULED MEDICATIONS ADMISNINSTERED PER EMAR ORDERS. PATIENT TOLORATED SWALLOWING MEDICATIONS WITHOUT DIFFICULTY. PATIENT REPOSITIONED IN BED. ASSESSMENT COMPLETED. PATIENT DENIES PAIN AT THIS TIME AND IS REFUSING TO EAT BREAKFAST STATING "I'M NOT HUNGRY". SEIZURE PADS AND BED ALARM ON BED. CALL LIGHT IN REACH.
[2025-06-25 10:28] LABS: OSMOLALITY 305 mOsm/kg (280-303)
--- NOTE | 2025-06-25 10:29 | NUR ---
PATIENT ATTEMPTED TO SIGN IM LETTER. PATIENT LIVES AT DESIRE FOR HEALING. WAITING TO SEE IF THEY CAN DO A WEEKEND DISCHARGE.
--- NOTE | 2025-06-25 11:45 | NUR ---
ROUNDED ON PATIENT. PATIENT REPOSITIONED SELF IN BED. PATIENT IS AWAKE AND ALERT AND RESPONDS TO RN APPROPRIATLY. NO NEEDS IDENTIFIED AT THIS TIME. CALL LIGHT IN REACH.
[2025-06-25 12:18] LABS: URINE OSMOLALITY 263 mOsm/kg (50-800)
--- NOTE | 2025-06-25 13:12 | NUR ---
PATIENT IS IN BED AT THIS TIME, WOOD SASH AND FRAME CARPENTER CHARTED VITALS AND I&O'S, TIDYED BED, FIXED AND CHANGED LINENS. FED PATIENT, GOT FRESH ICE WATER, CALL LIGHT WITH IN REACH AND NOTHING ELSE NEEDED AT THIS TIME.
--- NOTE | 2025-06-25 13:30 | NUR ---
CALLED [facility] FOR AN UPDATE ON IF PATIENT WOULD BE ABLE TO COME OVER THE WEEKEND. FACILITY DIRECTOR OF WOMEN'S SERVICES WILL PROVIDE A NURSE ASSESSMENT TONIGHT AFTER 6 PM. WILL BRING HIS WHEELCHAIR IN AND WC VAN TO PICK HIM UP FROM 10-11 TOMORROW.
--- NOTE | 2025-06-25 13:58 | NUR ---
ROUNDED ON PATIENT, LAYING IN BED WITH HOB RAISED. AWAKE AND ALERT WATCHING TV. PATIENT IS CALM AND JOKING WITH RN. SEIZURE PADS IN PLACE AND BED ALARM ON. NO NEEDS AT THIS TIME. CALL LIGHT IN REACH.
[2025-06-25] MEDS ORDERED: FLUCONAZOLE200 MG PO (15:38)
[2025-06-25] MEDS ORDERED: LEVETIRACETAM500 MG PO (15:40)
[2025-06-25] MEDS ORDERED: DESMOPRESSIN A0.1 MG PO (15:41)
--- NOTE | 2025-06-25 15:46 | NUR ---
PERSCRIPTION FAXED TO [facility]. COPY MADE AND SCRIP ON CHART.
--- NOTE | 2025-06-25 16:29 | NUR ---
ASSUMED CARE FROM MARTIR RODRIGUEZ. REPORT RECEIVED. PT LAYING IN BED, WATCHING TV. RESPIRATIONS EVEN AND UNLABORED. DENIES NEEDS. CALL LIGHT IN REACH.
--- NOTE | 2025-06-25 16:34 | NUR ---
PT LAYING IN BED, AWAKE. RESPIRATIONS EVEN AND UNLABORED. REPOSITIONED PT. DENIES NEEDS AT THE MOMENT. CALL LIGHT IN REACH.
--- NOTE | 2025-06-25 17:13 | NUR ---
ASSISTED PT WITH DINNER.
--- NOTE | 2025-06-25 18:40 | NUR ---
[facility] O[facility] CAME BY TO REASSESS PT. WILL BE BACK TO BRING PERSONAL WHEELCHAIR.
--- NOTE | 2025-06-25 18:46 | NUR ---
PT RESTING IN BED, RESPIRATIONS EVEN AND UNLABORED. REPOSITIONED PT, NO APPARENT NEEDS NOTED AT THIS TIME.
--- NOTE | 2025-06-25 19:24 | NUR ---
REPORT RECEIVED FROM MARTIR HSU. PATIENT RESTING IN BED WITH EYES CLOSED, RESPIRATIONS EVEN AND UNLABORED. SEIZURE PADS IN PLACE, BED ALARM ON. FACILTY DELIVERED PATIENT'S OWN WHEELCHAIR FOR USE TOMORROW. NO NEEDS IDENTIFIED, CALL LIGHT IN REACH
--- NOTE | 2025-06-25 21:20 | NUR ---
IN ROOM TO ASSESS PATIENT, COMPLETE VS AND GIVE SCHEDULED MEDICATIONS. PATIENT ATTEMPTING TO CLIMB OUT OF BED, STATES "I NEED TO TAKE A SHIT, IM GETTING UP". THIS RN AND RN CRYSTAL AT BEDSIDE TO ASSIST PATIENT ONTO BEDPAN, PATIENT REPEATEDLY HELD UP MIDDLE FINGER TO THIS RN, REFUSED TO LET US TOUCH HIM OR ASSIST HIM AND SHOUTED "FUCK YOU". BED ALARM ON, SEIZURE PADS IN PLACE.
--- NOTE | 2025-06-25 22:25 | NUR ---
VS, ASSESSMENT, AND SCHEDULED MEDICATIONS COMPLETE. PATIENT GIVEN WARM BLANKET, REPOSITIONED IN BED. HE DENIES ANY OTHER NEEDS, REPORTS HE IS COMFORTABLE, CALL LIGHT IN REACH, BED ALARM ON, SEIZURE PADS IN PLACE.
--- NOTE | 2025-06-25 23:17 | NUR ---
ROUNDED ON PATIENT, PATIENT RESTING WITH EYES CLOSED, RESPIRATIONS EVEN AND UNLABORED. NO NEEDS, CALL LIGHT IN REACH, BED ALARM ON.
--- NOTE | 2025-06-26 02:19 | NUR ---
ROUNDED ON PATIENT, PATIENT RESTING WITH EYES CLOSED, RESPIRATIONS EVEN AND UNLABORED, NO NEEDS, CALL LIGHT IN REACH, BED ALARM ON
--- NOTE | 2025-06-26 03:57 | NUR ---
ROUNDED ON PATIENT, PATIENT RESTING WITH EYES CLOSED, RESPIRATIONS EVEN AND UNLABORED. REPOSITIONED SELF, NO NEEDS IDENTIFIED, CALL LIGHT IN REACH, BED ALARM ON.
[2025-06-26 05:04] VITALS: BP 127/74
[2025-06-26 05:05] VITALS: BP 127/74
--- NOTE | 2025-06-26 05:09 | NUR ---
VS OBTAINED AND RECORDED, INTAKE AND OUTPUT DOCUMENTED. NEURO ASSESS COMPLETE. PATIENT STATES HE IS COMFORTABLE AND DOES NOT NEED HELP ADJUSTING. BED ALARM ON, CALL LIGHT IN REACH.
[2025-06-26 05:12] LABS: BASOPHILS 0.4 % (0.2-1.2); EOSINOPHILS 2.5 % (0.8-7.0); LYMPHOCYTES 31.0 % (21.8-53.1); MCH 29.5 PG (25.7-32.2); MCHC 33.0 g/dL (32.3-36.5); MCV 89.2 fL (79.0-92.2); MONOCYTES 8.6 % (5.3-12.2); NEUTROPHILS 55.3 % (34.0-67.9); RBC 3.70 M/uL (4.63-6.08)
[2025-06-26 05:45] LABS: ALT (SGPT) 27.0 U/L (14-59); AST (SGOT) 35.0 U/L (15-37); GLOMERULAR FILTRATION RATE,EST 89.0 mL/min (>60); PROTEIN, TOTAL 6.0 g/dL (6.4-8.2); UREA NITROGEN 15.0 mg/dL (7-18)
--- NOTE | 2025-06-26 06:27 | NUR ---
ROUNDED ON PATIENT, PATIENT IS RESTING WITH EYES CLOSED, RESPIRATIONS EVEN AND UNLABORED. SEIZURE PADS IN PLACE. BED ALARM ON. NO NEEDS, CALL LIGHT IN REACH
--- NOTE | 2025-06-26 07:05 | NUR ---
REPORT REC'D FROM MARTIR WINKLER. PT RESTING IN BED SEIZURE PADS ON FULL RAILS. CPOX IN USE AT BEDSIDE. NO ACUTE DISTRESS NOTED. SIDERAILS UP X4, CALL SALGUERO IN REACH, BED IN LOW POSITION AND LOCKED.
[2025-06-26 08:47] VITALS: BP 109/86
[2025-06-26 09:14] VITALS: BP 109/86
[2025-06-26 10:18] VITALS: BP 112/64
--- NOTE | 2025-06-26 10:50 | NUR ---
PT DRESSED AND HOYERED TO W/C. PT BEOMING AGITATED WITH TRANSFER AND GETTING DRESSED RAISING HIS MIDDLE FINGER FREQUENTLY AND SHOUTING "FUCK YOU" WHILE SWINGING HIS FIST TO HIT STAFF. PT NOTED TO ATTEMPT TO POSTURE WHILE SWINGING. STAFF PLACED PATIENT IN CHAIR, NO LEG RESTS OR SAFETY BELT ON CHAIR. SECURITY NOTIFIED WILL NEED ASSISTANCE WHEN W/C VAN ARRIVES. STAFF STAYING IN ROOM WHILE PATIENT IN W/C R/T SEIZURE PRECAUTIONS AND SAFETY CONCERNS FOR W/C AND MOBILITY. W/C VAN TO ARRIVE AT APPROXIMATELY 1145.
--- NOTE | 2025-06-26 11:55 | NUR ---
BLANCA MCGRATH'D VIA W/C WITH SECURITY. TRANSPORTED BY W/C VAN WITH ALL BELONGING.
[2025-06-26 13:05] LABS: OSMOLALITY 292 mOsm/kg (280-303)
[2025-06-26 15:00] LABS: CORTISOL,SERUM 14.5 ug/dL (())
== END 2025-06-26 11:50 | disposition home or self-care (01) | DRG 698 ==
LOC: ED 17:08 → CCU 21:28 → MS 06-19 04:20
PROVIDERS: Emergency Medicine; Family Medicine; Internal Medicine; ADMIT Student in an Organized Health Care Education/Training Program; ATTEND Student in an Organized Health Care Education/Training Program
PROC: 0T2BX0Z Change Drainage Device in Bladder, External Approach (ICD-10-PCS; principal; 2025-06-17)
PROC: 3E03329 Introduction of Other Anti-infective into Peripheral Vein, Percutaneous Approach (ICD-10-PCS; 2025-06-17)
DX: T83.511A Infection and inflammatory reaction due to indwelling urethral catheter, initial encounter (principal); B37.7 Candidal sepsis; F03.93 Unspecified dementia, unspecified severity, with mood disturbance; N17.9 Acute kidney failure, unspecified; N12 Tubulo-interstitial nephritis, not specified as acute or chronic; E87.0 Hyperosmolality and hypernatremia; Z66 Do not resuscitate; N40.0 Benign prostatic hyperplasia without lower urinary tract symptoms; G40.909 Epilepsy, unspecified, not intractable, without status epilepticus; I12.9 Hypertensive chronic kidney disease with stage 1 through stage 4 chronic kidney disease, or unspecified chronic kidney disease; R45.1 Restlessness and agitation; N18.9 Chronic kidney disease, unspecified; R19.7 Diarrhea, unspecified; G47.33 Obstructive sleep apnea (adult) (pediatric); L40.9 Psoriasis, unspecified; G89.29 Other chronic pain; Z86.73 Personal history of transient ischemic attack (TIA), and cerebral infarction without residual deficits; Z79.899 Other long term (current) drug therapy; Z79.52 Long term (current) use of systemic steroids; Z79.82 Long term (current) use of aspirin; Y84.6 Urinary catheterization as the cause of abnormal reaction of the patient, or of later complication, without mention of misadventure at the time of the procedure
CPT/HCPCS: 36415; 51702; 71045; 74176; 80048; 80053; 81001; 82024; 82533; 83605; 83735; 83930; 83935; 84100; 84439; 84443; 85025; 85060; 87040; 87077; 87088; 96374; 99285-25; A9270; J0696; J1644; J3480; J3490; J7030; J7060; J7070; J7121; Q0177